=== PATIENT | female | born 1950 | race Caucasian/White ===

== ENCOUNTER → 2016-12-08 | Outpatient (CLI) | payer OTHER ==
[2016-12-08 07:55] LABS: Urine RBC None Seen /hpf (0 - 4)
[2016-12-08 08:10] LABS: Basophils # (auto) 0 uL; Eosinophils # (auto) 0.1 uL; Eosinophils % (auto) 4.7 % (0.0-7.0); Hematocrit 39.2 % (36.0-46.0); Hemoglobin 13.1 g/dL (12.2-16.2); Lymphocytes % (auto) 32.3 % (10.0-50.0); Mean Corpuscular Hemoglobin 32.2 pg (28.0-32.0); Mean Corpuscular Hgb Conc. 33.4 g/dL (32.0-36.0); Mean Corpuscular Volume 96.4 fL (80.0-100.0); Mean Platelet Volume 7.1 fL (6.9-10.8); Monocytes # (auto) 0.3 uL; Monocytes % (auto) 9.3 % (0.0-12.0); Neutrophils # (auto) 1.7 uL; Neutrophils % (auto) 52.7 % (37.0-80.0); Platelet Count (auto) 196 10^3/uL (140-450); White Blood Cell 3.2 10^3/uL (4.4-10.8)
[2016-12-08 08:23] LABS: INR 1.05 (0.9-1.15); Partial Thromboplastin Time 28.1 sec (22.64-33.71); Prothrombin Time 11.4 sec (9.37-12.3)
[2016-12-08 08:42] LABS: Urine Bilirubin Negative (Negative); Urine Blood Negative /uL (Negative); Urine Color Yellow (Yellow); Urine Glucose Normal (Normal); Urine Ketone Negative (Negative); Urine Nitrite Negative (Negative); Urine Squamous Epithelial Cell FEW /hpf (<5); Urine Urobilinogen Normal (Negative)
[2016-12-08 09:13] LABS: Albumin 3.6 g/dL (3.4-5.0); BUN/Creatinine Ratio 20.5; Bilirubin, Total 0.5 mg/dL (0.2-1.0); Potassium 3.8 mmol/L (3.5-5.1); Total Protein 7.2 g/dL (6.4-8.2)
[2016-12-09 08:06] LABS: Thyroid Peroxidase (TPO) Ab 12 IU/mL (0-34)
[2016-12-09 16:08] LABS: Sjogren's Anti-SS-A Antibody <0.2 AI (0.0-0.9)
== END | disposition home or self-care (01) ==
LOC: LAB 07:33
PROVIDERS: ATTEND Internal Medicine
DX: E03.9 Hypothyroidism, unspecified (principal); M25.50 Pain in unspecified joint
CPT/HCPCS: 36415; 80053; 80061; 81001; 84439; 84443; 85025; 85610; 85652; 85730; 86225; 86235

== ENCOUNTER → 2017-02-24 | Outpatient (CLI) | payer OTHER | END | disposition home or self-care (01) | LOC: LAB 16:39 | PROVIDERS: ATTEND Specialist | DX: N39.0 Urinary tract infection, site not specified (principal) | CPT/HCPCS: 87086 ==

== ENCOUNTER 2017-03-13 08:39 | Day surgery (SDC) | payer OTHER ==
[2017-03-10 17:03] LABS: INR 1.03 (0.9-1.15); Prothrombin Time 11.2 sec (9.37-12.3)
[2017-03-10 17:19] LABS: Basophils # (auto) 0 uL; Basophils % (auto) 0.7 % (0.0-2.0); Eosinophils # (auto) 0.1 uL; Eosinophils % (auto) 2.9 % (0.0-7.0); Hematocrit 39.1 % (36.0-46.0); Hemoglobin 12.9 g/dL (12.2-16.2); Lymphocytes % (auto) 23.4 % (10.0-50.0); Mean Corpuscular Hemoglobin 31.6 pg (28.0-32.0); Mean Corpuscular Volume 95.8 fL (80.0-100.0); Monocytes # (auto) 0.4 uL; Neutrophils # (auto) 2.9 uL; Nucleated Red Blood Cells % 0.1 %; Platelet Count (auto) 242 10^3/uL (140-450); Red Blood Cells 4.08 10^6/uL (4.0-5.20); Red Cell Distribution Width 14.1 % (11.8-14.3); White Blood Cell 4.5 10^3/uL (4.4-10.8)
[~2017-03-13] VITALS: Ht 170.2 cm; Wt 74.8 kg
[~2017-03-13 08:39] MED LIST: LEVO125T7 PO
[2017-03-13] MEDS ORDERED: SODIUM CHLORIDE LOCK 10 ML ONE (09:26)
[2017-03-13] MEDS ORDERED: diphenhdrAMINE HCL 50 MG/1 ML VL ONE (09:28)
[2017-03-13] MEDS: fentaNYL CITRATE 100 MCG/2 ML VL ONE ×2 (10:17→10:25)
[2017-03-13] MEDS: MIDAZOLAM HCL 5 MG/ML-1ML VIAL ONE ×2 (10:17→10:25)
[2017-03-13 11:13] VITALS: BP 117/76
== END 2017-03-13 11:22 | disposition home or self-care (01) ==
LOC: GI 08:39
PROVIDERS: ATTEND Internal Medicine Gastroenterology
DX: Z12.11 Encounter for screening for malignant neoplasm of colon (principal); K57.30 Diverticulosis of large intestine without perforation or abscess without bleeding; E66.9 Obesity, unspecified; Z68.25 Body mass index [BMI] 25.0-25.9, adult
CPT/HCPCS: 36415; 45378; 85025; 85610; J1200; J2250; J3010; J7030; 99152

== ENCOUNTER 2017-03-25 10:44 | Emergency (ER) | payer OTHER ==
[~2017-03-25] VITALS: Ht 170.2 cm; Wt 75.7 kg
[2017-03-25 11:56] LABS: Basophils # (auto) 0 uL; Basophils % (auto) 0.5 % (0.0-2.0); Eosinophils # (auto) 0.1 uL; Eosinophils % (auto) 2.4 % (0.0-7.0); Hematocrit 39.3 % (36.0-46.0); Hemoglobin 13.1 g/dL (12.2-16.2); Lymphocytes % (auto) 22.4 % (10.0-50.0); Mean Corpuscular Hemoglobin 31.6 pg (28.0-32.0); Mean Corpuscular Hgb Conc. 33.3 g/dL (32.0-36.0); Monocytes # (auto) 0.3 uL; Monocytes % (auto) 7.3 % (0.0-12.0); Neutrophils % (auto) 67.4 % (37.0-80.0); Nucleated Red Blood Cells % 0.1 %; Platelet Count (auto) 221 10^3/uL (140-450); Red Blood Cells 4.13 10^6/uL (4.0-5.20); Red Cell Distribution Width 13.9 % (11.8-14.3); White Blood Cell 4.4 10^3/uL (4.4-10.8)
[2017-03-25 12:16] LABS: Urine Bacteria FEW /hpf (None Seen); Urine Blood Negative /uL (Negative); Urine Specific Gravity 1.019 (1.001-1.035); Urine WBC 87 /hpf (0 - 5); Urine WBC Clumps PRESENT /hpf (None Seen)
[2017-03-25 12:29] LABS: Alanine Aminotransferase 31 U/L (13-56); Albumin 3.6 g/dL (3.4-5.0); Alkaline Phosphatase 66 U/L (45-117); Anion Gap 5 (5-15); Aspartate Aminotransferase 26 U/L (15-37); BUN/Creatinine Ratio 18.3; Bilirubin, Total 0.4 mg/dL (0.2-1.0); Blood Urea Nitrogen 15 mg/dL (7-18); Calcium 8.9 mg/dL (8.5-10.1); Carbon Dioxide 31 mmol/L (21-32); Chloride 104 mmol/L (98-107); GFR African American 90 mL/min; GFR Non-African American 74 mL/min; Glucose 96 mg/dL (74-106); Magnesium 2.4 mg/dL (1.6-2.6); Potassium 3.9 mmol/L (3.5-5.1); Sodium 140 mmol/L (136-145); Total Protein 7.3 g/dL (6.4-8.2)
[2017-03-25 15:22] VITALS: BP 114/63
[2017-03-25] MEDS ORDERED: SODIUM CHLORIDE 0.9% 500 ML IV ONE (17:17)
[2017-03-25] MEDS ORDERED: cefTRIAXone 1GM/10ml IVPUSH 10 ML IV ONE (17:30)
== END 2017-03-25 19:04 | disposition home or self-care (01) ==
LOC: ER 10:44
DX: N39.0 Urinary tract infection, site not specified (principal); R53.1 Weakness
CPT/HCPCS: 36415; 71045; 80053; 81001; 83735; 84443; 84484; 85025; 93005; 96361; 96374; 99285; J7040

== ENCOUNTER → 2017-05-07 | Outpatient (CLI) | payer OTHER | END | disposition home or self-care (01) | LOC: XYW 08:05 | PROVIDERS: ATTEND Internal Medicine | DX: Z01.818 Encounter for other preprocedural examination (principal) | CPT/HCPCS: 93306 ==

== ENCOUNTER → 2020-01-05 | Outpatient (CLI) | payer OTHER ==
[2020-01-05 08:35] LABS: Basophils # (auto) 0 10 ^3/uL (0-0.2); Basophils % (auto) 0.9 % (0.0-2.0); Eosinophils # (auto) 0.2 10 ^3/uL (0-0.8); Eosinophils % (auto) 4.9 % (0.0-7.0); Hematocrit 39.7 % (36.0-46.0); Hemoglobin 12.9 g/dL (12.2-16.2); Lymphocytes % (auto) 28.1 % (10.0-50.0); Mean Corpuscular Hemoglobin 30.2 pg (28.0-32.0); Mean Corpuscular Hgb Conc. 32.6 g/dL (32.0-36.0); Mean Corpuscular Volume 92.8 fL (80.0-100.0); Monocytes # (auto) 0.4 10 ^3/uL (0-1.3); Monocytes % (auto) 10.5 % (0.0-12.0); Neutrophils # (auto) 2.1 10 ^3/uL (1.6-8.6); Neutrophils % (auto) 55.6 % (37.0-80.0); Nucleated Red Blood Cells % 0.1 %; Platelet Count (auto) 220 10^3/uL (140-450); Red Blood Cells 4.27 10^6/uL (4.0-5.20); Red Cell Distribution Width 16.3 % (11.8-14.3); White Blood Cell 3.7 10^3/uL (4.4-10.8)
[2020-01-05 08:37] LABS: Urine Bacteria FEW /hpf (None Seen); Urine Blood Negative /uL (Negative); Urine Mucus FEW (None Seen); Urine Specific Gravity 1.023 (1.001-1.035); Urine WBC 2 /hpf (0 - 5)
[2020-01-05 09:03] LABS: Albumin 3.3 g/dL (3.4-5.0); Calcium 9.1 mg/dL (8.5-10.1); Potassium 4.1 mmol/L (3.5-5.1)
[2020-01-05 09:10] LABS: Bilirubin, Total 0.3 mg/dL (0.2-1.0); Total Protein 7.1 g/dL (6.4-8.2)
== END | disposition home or self-care (01) ==
LOC: LAB 08:15
PROVIDERS: ATTEND Internal Medicine
DX: E03.9 Hypothyroidism, unspecified (principal)
CPT/HCPCS: 36415; 80053; 80061; 81001; 84439; 84443; 85025; 85652

== ENCOUNTER → 2022-01-24 | Outpatient (CLI) | payer OTHER ==
[2022-01-24 12:01] LABS: Basophils # (auto) 0 10 ^3/uL (0-0.2); Eosinophils # (auto) 0.1 10 ^3/uL (0-0.8); Mean Corpuscular Volume 65.8 fL (80.0-100.0); Neutrophils # (auto) 1.9 10 ^3/uL (1.6-8.6)
[2022-01-24 12:03] LABS: Basophils % (auto) 0.8 % (0.0-2.0); Eosinophils % (auto) 4.2 % (0.0-7.0); Hematocrit 27.7 % (36.0-46.0); Lymphocytes # (auto) 0.8 10 ^3/uL (0.4-5.4); Lymphocytes % (auto) 24.8 % (10.0-50.0); Mean Corpuscular Hgb Conc. 28.8 g/dL (32.0-36.0); Monocytes # (auto) 0.5 10 ^3/uL (0-1.3); Monocytes % (auto) 13.8 % (0.0-12.0); Neutrophils % (auto) 56.4 % (37.0-80.0); Nucleated Red Blood Cells % 0.3 %; Red Blood Cells 4.21 10^6/uL (4.0-5.20); Red Cell Distribution Width 19.2 % (11.8-14.3); White Blood Cell 3.4 10^3/uL (4.4-10.8)
[2022-01-24 12:29] LABS: Calcium 8.8 mg/dL (8.5-10.1); Potassium 4.1 mmol/L (3.5-5.1)
[2022-01-24 12:32] LABS: Urine Bacteria NONE SEEN /hpf (None Seen); Urine Blood Negative /uL (Negative); Urine Mucus FEW (None Seen); Urine WBC 1 /hpf (0 - 5)
[2022-01-24 12:35] LABS: Albumin 3.5 g/dL (3.4-5.0); BUN/Creatinine Ratio 16.7; Bilirubin, Total 0.4 mg/dL (0.2-1.0); Total Protein 7.4 g/dL (6.4-8.2)
== END | disposition home or self-care (01) ==
LOC: LAB 11:40
PROVIDERS: ATTEND Internal Medicine
DX: H26.9 Unspecified cataract (principal); H40.9 Unspecified glaucoma
CPT/HCPCS: 36415; 80053; 80061; 81001; 83036; 84439; 84443; 84550; 85025; 85379; 85652; 86431

== ENCOUNTER → 2022-01-27 | Outpatient (CLI) | payer OTHER ==
[2022-01-27 11:28] LABS: % Iron Saturation 2.5 % (15-50)
[2022-01-27 12:38] LABS: Folate (Folic Acid) > 24.00 ng/mL (5.38-24)
== END | disposition home or self-care (01) ==
LOC: LAB 10:01
PROVIDERS: ATTEND Internal Medicine
DX: D64.9 Anemia, unspecified (principal); D72.819 Decreased white blood cell count, unspecified
CPT/HCPCS: 36415; 82607; 82746; 83540; 83550; 83615; 83690

== ENCOUNTER → 2022-04-04 | Outpatient (CLI) | payer OTHER ==
[2022-04-04 13:12] LABS: Basophils # (auto) 0 10 ^3/uL (0-0.2); Basophils % (auto) 0.8 % (0.0-2.0); Eosinophils # (auto) 0.1 10 ^3/uL (0-0.8); Hematocrit 38.7 % (36.0-46.0); Hemoglobin 11.8 g/dL (12.2-16.2); Lymphocytes # (auto) 0.8 10 ^3/uL (0.4-5.4); Lymphocytes % (auto) 20.8 % (10.0-50.0); Mean Corpuscular Hemoglobin 23.5 pg (28.0-32.0); Mean Corpuscular Hgb Conc. 30.4 g/dL (32.0-36.0); Mean Corpuscular Volume 77.2 fL (80.0-100.0); Monocytes # (auto) 0.3 10 ^3/uL (0-1.3); Monocytes % (auto) 9.2 % (0.0-12.0); Neutrophils # (auto) 2.4 10 ^3/uL (1.6-8.6); Neutrophils % (auto) 66.2 % (37.0-80.0); Nucleated Red Blood Cells % 0.1 %; Red Blood Cells 5.02 10^6/uL (4.0-5.20); White Blood Cell 3.6 10^3/uL (4.4-10.8)
[2022-04-04 13:16] LABS: Red Cell Distribution Width 28.5 % (11.8-14.3)
[2022-04-04 13:25] LABS: INR 1.03 (0.9-1.15)
[2022-04-04 14:09] LABS: Albumin 3.9 g/dL (3.4-5.0); Calcium 8.8 mg/dL (8.5-10.1); Potassium 4.2 mmol/L (3.5-5.1)
[2022-04-04 14:13] LABS: BUN/Creatinine Ratio 23.3; Bilirubin, Total 0.3 mg/dL (0.2-1.0); Total Protein 7.8 g/dL (6.4-8.2)
[2022-04-04 14:23] LABS: Free T4 (Free Thyroxine) 1.3 ng/dL (0.89-1.76)
[2022-04-04 14:38] LABS: % Iron Saturation 53.8 % (15-50)
== END | disposition home or self-care (01) ==
LOC: LAB 12:50
PROVIDERS: ATTEND Internal Medicine
DX: E03.9 Hypothyroidism, unspecified (principal); D64.9 Anemia, unspecified
CPT/HCPCS: 36415; 80053; 82607; 83540; 83550; 84439; 84443; 85025; 85610

== ENCOUNTER → 2022-04-08 | Outpatient (CLI) | payer OTHER | END | disposition home or self-care (01) | LOC: XYW 09:37 | PROVIDERS: ATTEND Internal Medicine | DX: R06.02 Shortness of breath (principal) | CPT/HCPCS: 93306 ==

== ENCOUNTER → 2022-04-17 | Outpatient (CLI) | payer OTHER ==
[~2022-04-17] VITALS: Ht 170.2 cm; Wt 113.4 kg
[~2022-04-17] MED LIST changes: +ADENOSINE 95 MG in GIVE UN-DILUTED 0 ML IV ONE
== END | disposition home or self-care (01) ==
LOC: XYW 07:07
PROVIDERS: ATTEND Internal Medicine
DX: R06.02 Shortness of breath (principal)
CPT/HCPCS: 78452; 93017; A9500; J0153

== ENCOUNTER 2022-06-03 11:39 | Inpatient (IN) | payer OTHER ==
[~2022-06-03] VITALS: Ht 167.6 cm; Wt 113.5 kg
[~2022-06-03 11:39] MED LIST changes: -ADENOSINE 95 MG in GIVE UN-DILUTED 0 ML IV ONE
[2022-06-03] MEDS ORDERED: ASPirin 325 MG TAB PO ONE (12:00)
[2022-06-03 12:18] LABS: Basophils # (auto) 0 10 ^3/uL (0-0.2); Basophils % (auto) 0.2 % (0.0-2.0); Eosinophils # (auto) 0 10 ^3/uL (0-0.8); Eosinophils % (auto) 0.1 % (0.0-7.0); Hematocrit 43.2 % (36.0-46.0); Hemoglobin 13.9 g/dL (12.2-16.2); Lymphocytes # (auto) 0.7 10 ^3/uL (0.4-5.4); Mean Corpuscular Hemoglobin 27.6 pg (28.0-32.0); Mean Corpuscular Hgb Conc. 32.1 g/dL (32.0-36.0); Mean Corpuscular Volume 86.2 fL (80.0-100.0); Monocytes % (auto) 9.5 % (0.0-12.0); Neutrophils # (auto) 8.3 10 ^3/uL (1.6-8.6); Neutrophils % (auto) 83.2 % (37.0-80.0); Nucleated Red Blood Cells % 0.1 %; Red Blood Cells 5.02 10^6/uL (4.0-5.20)
[2022-06-03 12:24] LABS: Red Cell Distribution Width 21.9 % (11.8-14.3)
[2022-06-03 12:36] LABS: Calcium 8.6 mg/dL (8.5-10.1)
[2022-06-03 12:39] LABS: BUN/Creatinine Ratio 15.2 (10.0-20.0); Bilirubin, Total 0.8 mg/dL (0.2-1.0); Total Protein 7.8 g/dL (6.4-8.2)
[2022-06-03] MEDS ORDERED: ENOXAPARIN SOD 120 MG/0.8 ML SYRINGE SC ONE (13:00)
[2022-06-03] MEDS ORDERED: NITROGLYCERIN 0.4 MG SL TAB SL PRN (15:00)
[2022-06-03] MEDS ORDERED: MORPHINE SULFATE INJ 2 MG/ml SYRG IV PRN (15:00)
[2022-06-03] MEDS ORDERED: ACETAMINOPHEN 325 MG TAB PO PRN (15:00)
[2022-06-03] MEDS ORDERED: PANTOPRAZOLE 40 MG/10 ML VIAL INJ IV ONE (15:00)
[2022-06-03] MEDS ORDERED: SERT50TA19 PO (15:05)
[2022-06-03] MEDS ORDERED: PANT40T PO (15:05)
[2022-06-03] MEDS ORDERED: OXYB5TAB24 (15:05)
[2022-06-03 15:26] LABS: Cholesterol 185 mg/dL (< 200)
[2022-06-03 15:28] LABS: HDL Cholesterol 78 mg/dL (40-59); LDL Cholesterol 106 mg/dL (< 100); Triglycerides 56 mg/dL (< 150)
[2022-06-03 15:30] LABS: INR 1.09 (0.9-1.15); Partial Thromboplastin Time 35.9 sec (24.6-33.4)
[2022-06-03] MEDS ORDERED: ALBUTEROL SULF 2.5 MG/0.5ML(0.5%) NEB SOLN NEB PRN (15:30)
[2022-06-03] MEDS ORDERED: ANGIOMAX 250 MG VIAL IV ONE (15:45)
[2022-06-03] MEDS ORDERED: HEPARIN SODIUM (PORCINE) 5000 UNITS/ML 1ML VIAL ONE (15:46)
[2022-06-03] MEDS ORDERED: SODIUM CHL 0.9% 0 ML ONE (15:46)
[2022-06-03] MEDS ORDERED: fentaNYL CITRATE 100 MCG/2 ML VL ONE (15:46)
[2022-06-03] MEDS ORDERED: VERAPAMIL 2.5MG/ML INJ 2ML VIAL IV ONE (15:46)
[2022-06-03] MEDS ORDERED: MIDAZOLAM HCL 2MG/2ML 2ml VIAL (1mg/ml) ONE (15:46)
[2022-06-03] MEDS ORDERED: IODIXANOL 320MG/ML 100ML BTL IV ONE (15:47)
[2022-06-03] MEDS ORDERED: LIDOCAINE 2%HCL (LOCAL ANESTH.) INJ 20ML MDV ONE (15:47)
[2022-06-03] MEDS ORDERED: LIDOCAINE 1% HCL (LOCAL ANESTH.) INJ 20ML MDV ONE (16:14)
[2022-06-03 16:46] VITALS: BP 107/59
[2022-06-03 17:01] VITALS: BP 104/62
[2022-06-03 17:16] VITALS: BP 93/57
[2022-06-03 17:31] VITALS: BP 95/62
[2022-06-03 17:46] VITALS: BP 101/62
[2022-06-03] MEDS: SODIUM CHLORIDE 0.9% 1,000 ML IV SCH (18:14)
[2022-06-03] MEDS: ATORVASTATIN 20 MG TAB PO SCH (21:17)
[2022-06-03 21:55] VITALS: BP 103/66
[2022-06-04 05:00] VITALS: BP 91/55
[2022-06-04] MEDS: LEVOTHYROXINE SODIUM 25 MCG TAB PO SCH (06:10)
[2022-06-04] MEDS: LEVOTHYROXINE SODIUM 100 MCG TAB PO SCH (06:10)
[2022-06-04] MEDS: SODIUM CHLORIDE 0.9% 1,000 ML IV SCH (06:15)
[2022-06-04 06:28] LABS: Basophils # (auto) 0 10 ^3/uL (0-0.2); Basophils % (auto) 0.3 % (0.0-2.0); Eosinophils # (auto) 0 10 ^3/uL (0-0.8); Eosinophils % (auto) 0.3 % (0.0-7.0); Hematocrit 37.9 % (36.0-46.0); Hemoglobin 12.5 g/dL (12.2-16.2); Lymphocytes % (auto) 11.7 % (10.0-50.0); Mean Corpuscular Hemoglobin 28.4 pg (28.0-32.0); Mean Corpuscular Hgb Conc. 32.9 g/dL (32.0-36.0); Mean Corpuscular Volume 86.3 fL (80.0-100.0); Monocytes # (auto) 1.1 10 ^3/uL (0-1.3); Monocytes % (auto) 12.7 % (0.0-12.0); Neutrophils # (auto) 6.6 10 ^3/uL (1.6-8.6); Nucleated Red Blood Cells % 0.3 %; Red Blood Cells 4.38 10^6/uL (4.0-5.20); White Blood Cell 8.8 10^3/uL (4.4-10.8)
[2022-06-04 06:48] LABS: Potassium 4.1 mmol/L (3.5-5.1)
[2022-06-04 06:56] LABS: Albumin 2.6 g/dL (3.4-5.0); BUN/Creatinine Ratio 22.2 (10.0-20.0); Bilirubin, Total 0.6 mg/dL (0.2-1.0); Calcium 8.1 mg/dL (8.5-10.1); Total Protein 6.2 g/dL (6.4-8.2)
[2022-06-04 09:00] VITALS: BP 98/62
[2022-06-04] MEDS ORDERED: ASPirin 81 mg TAB PO ONE (10:00)
[2022-06-04] MEDS ORDERED: METOPROLOL SUCCINATE XL 50 MG TAB PO SCH (10:00)
[2022-06-04] MEDS: SERTRALINE HCL 50 MG TAB PO SCH (10:25)
[2022-06-04] MEDS: predniSONE 20 MG TAB PO SCH (10:25)
[2022-06-04] MEDS: ASPirin 81 mg TAB PO SCH (10:26)
[2022-06-04] MEDS: PANTOPRAZOLE 40 MG/10 ML VIAL INJ IV SCH (10:26)
[2022-06-04 13:00] VITALS: BP 95/61
[2022-06-04 16:58] VITALS: BP 94/51
[2022-06-04] MEDS: ATORVASTATIN 20 MG TAB PO SCH (21:27)
[2022-06-04 22:00] VITALS: BP 112/74
[2022-06-05 05:00] VITALS: BP 105/62
[2022-06-05] MEDS: LEVOTHYROXINE SODIUM 100 MCG TAB PO SCH (06:36)
[2022-06-05] MEDS: LEVOTHYROXINE SODIUM 25 MCG TAB PO SCH (06:36)
[2022-06-05 06:57] LABS: Basophils # (auto) 0 10 ^3/uL (0-0.2); Basophils % (auto) 0.2 % (0.0-2.0); Eosinophils # (auto) 0 10 ^3/uL (0-0.8); Eosinophils % (auto) 0.5 % (0.0-7.0); Hematocrit 35.8 % (36.0-46.0); Hemoglobin 11.5 g/dL (12.2-16.2); Lymphocytes # (auto) 1.2 10 ^3/uL (0.4-5.4); Mean Corpuscular Hemoglobin 28.1 pg (28.0-32.0); Mean Corpuscular Hgb Conc. 32.2 g/dL (32.0-36.0); Mean Corpuscular Volume 87.1 fL (80.0-100.0); Monocytes # (auto) 0.9 10 ^3/uL (0-1.3); Monocytes % (auto) 11.3 % (0.0-12.0); Neutrophils # (auto) 5.8 10 ^3/uL (1.6-8.6); Red Blood Cells 4.11 10^6/uL (4.0-5.20); White Blood Cell 7.9 10^3/uL (4.4-10.8)
[2022-06-05 07:04] LABS: Red Cell Distribution Width 21.6 % (11.8-14.3)
[2022-06-05 07:14] LABS: BUN/Creatinine Ratio 19.5 (10.0-20.0); Calcium 8.7 mg/dL (8.5-10.1); Potassium 3.6 mmol/L (3.5-5.1)
[2022-06-05 09:00] VITALS: BP_SYST 106; BP_SYST 128; BP_DIAS 82; BP_DIAS 89
[2022-06-05] MEDS: ASPirin 81 mg TAB PO SCH (09:18)
[2022-06-05] MEDS: predniSONE 20 MG TAB PO SCH (09:19)
[2022-06-05] MEDS: SERTRALINE HCL 50 MG TAB PO SCH (09:19)
[2022-06-05] MEDS: PANTOPRAZOLE 40 MG/10 ML VIAL INJ IV SCH (09:19)
[2022-06-05] MEDS ORDERED: COLCHICINE 0.6 MG CAP PO SCH (10:00)
[2022-06-05 12:55] VITALS: BP 128/81
[2022-06-05 15:00] VITALS: BP 120/87
== END 2022-06-05 16:15 | disposition home or self-care (01) | DRG 280 ==
LOC: EDBD 11:39 → ER 11:39 → TELE 15:02 → TELE-WESTW 17:59
PROVIDERS: ADMIT Nurse Practitioner Family; ATTEND Internal Medicine
PROC: 4A023N7 Measurement of Cardiac Sampling and Pressure, Left Heart, Percutaneous Approach (ICD-10-PCS; principal; 2022-06-03)
PROC: B211YZZ Fluoroscopy of Multiple Coronary Arteries using Other Contrast (ICD-10-PCS; 2022-06-03)
PROC: B215YZZ Fluoroscopy of Left Heart using Other Contrast (ICD-10-PCS; 2022-06-03)
DX: I25.10 Atherosclerotic heart disease of native coronary artery without angina pectoris (principal); I50.43 Acute on chronic combined systolic (congestive) and diastolic (congestive) heart failure; I21.A1 Myocardial infarction type 2; I31.9 Disease of pericardium, unspecified; Z68.41 Body mass index [BMI] 40.0-44.9, adult; I82.412 Acute embolism and thrombosis of left femoral vein; E03.9 Hypothyroidism, unspecified; E66.01 Morbid (severe) obesity due to excess calories; F41.9 Anxiety disorder, unspecified; K21.9 Gastro-esophageal reflux disease without esophagitis; Z20.822 Contact with and (suspected) exposure to COVID-19; Z80.1 Family history of malignant neoplasm of trachea, bronchus and lung; Z82.49 Family history of ischemic heart disease and other diseases of the circulatory system
CPT/HCPCS: 36415; 71045; 78582; 80048; 80053; 80061; 83036; 83880; 84443; 84484; 85025; 85379; 85610; 85730; 87426; 93005; 93970; 96372; 99152; 99291; C9113; G0378; J2001; J2250; Q9967

== ENCOUNTER → 2022-09-04 | Outpatient (CLI) | payer OTHER ==
[~2022-09-04] MED LIST changes: +OXYB5TAB24; +PANT40T PO; +SERT-206 PO
== END | disposition home or self-care (01) ==
LOC: LAB 12:40
PROVIDERS: ATTEND Internal Medicine
DX: I82.409 Acute embolism and thrombosis of unspecified deep veins of unspecified lower extremity (principal); M19.90 Unspecified osteoarthritis, unspecified site
CPT/HCPCS: 36415; 81241; 85301; 85302; 85305; 85306; 85730

== ENCOUNTER → 2023-02-23 | Outpatient (CLI) | payer OTHER ==
[2023-02-23 11:21] LABS: Basophils # (auto) 0 10 ^3/uL (0-0.2); Basophils % (auto) 0.9 % (0.0-2.0); Eosinophils # (auto) 0.2 10 ^3/uL (0-0.8); Eosinophils % (auto) 5.1 % (0.0-7.0); Hemoglobin 12.5 g/dL (12.2-16.2); Lymphocytes # (auto) 0.8 10 ^3/uL (0.4-5.4); Lymphocytes % (auto) 24.2 % (10.0-50.0); Mean Corpuscular Hemoglobin 32.5 pg (28.0-32.0); Mean Corpuscular Hgb Conc. 32.8 g/dL (32.0-36.0); Mean Corpuscular Volume 99.2 fL (80.0-100.0); Monocytes # (auto) 0.4 10 ^3/uL (0-1.3); Monocytes % (auto) 11.4 % (0.0-12.0); Neutrophils # (auto) 1.8 10 ^3/uL (1.6-8.6); Neutrophils % (auto) 58.4 % (37.0-80.0); Nucleated Red Blood Cells % 0.1 %; Red Blood Cells 3.83 10^6/uL (4.0-5.20); Red Cell Distribution Width 13.2 % (11.8-14.3); White Blood Cell 3.2 10^3/uL (4.4-10.8)
[2023-02-23 11:42] LABS: Urine Bacteria FEW /hpf (None Seen); Urine Blood Negative /uL (Negative); Urine Clarity Clear (Clear); Urine Color Yellow (Yellow); Urine Protein, UAD TRACE (Negative); Urine Specific Gravity 1.026 (1.001-1.035); Urine Urobilinogen Normal (Negative); Urine WBC <1 /hpf (0 - 5)
[2023-02-23 11:58] LABS: Erythrocyte Sedimentation Rate 15 mm/hr (0-20)
[2023-02-23 12:20] LABS: Alanine Aminotransferase 22 U/L (7-40); Albumin 4.2 g/dL (3.2-4.8); Alkaline Phosphatase 78 U/L (46-116); Anion Gap 5 (5-15); Aspartate Aminotransferase 29 U/L (13-40); BUN/Creatinine Ratio 14.3 (10.0-20.0); Bilirubin, Total 0.5 mg/dL (0.2-1.0); Blood Urea Nitrogen 10 mg/dL (9-23); CRP High Sensitivity 0.23 mg/dL (<1.0); Calcium 9.3 mg/dL (8.5-10.1); Carbon Dioxide 30 mmol/L (20-30); Chloride 108 mmol/L (98-107); Glucose 93 mg/dL (74-106); Sodium 143 mmol/L (136-145)
== END | disposition home or self-care (01) ==
LOC: LAB 10:56
PROVIDERS: ATTEND Internal Medicine Rheumatology
DX: M32.10 Systemic lupus erythematosus, organ or system involvement unspecified (principal); Z79.899 Other long term (current) drug therapy
CPT/HCPCS: 36415; 80053; 81001; 85025; 85652; 86141

== ENCOUNTER → 2023-05-29 | Outpatient (CLI) | payer OTHER ==
[2023-05-29 09:40] LABS: Basophils # (auto) 0 10 ^3/uL (0-0.2); Basophils % (auto) 0.7 % (0.0-2.0); Eosinophils # (auto) 0.2 10 ^3/uL (0-0.8); Hematocrit 42.5 % (36.0-46.0); Hemoglobin 13.8 g/dL (12.2-16.2); Lymphocytes # (auto) 0.9 10 ^3/uL (0.4-5.4); Lymphocytes % (auto) 27.6 % (10.0-50.0); Mean Corpuscular Hemoglobin 30.2 pg (28.0-32.0); Mean Corpuscular Hgb Conc. 32.4 g/dL (32.0-36.0); Mean Corpuscular Volume 93.3 fL (80.0-100.0); Monocytes # (auto) 0.3 10 ^3/uL (0-1.3); Neutrophils # (auto) 1.9 10 ^3/uL (1.6-8.6); Neutrophils % (auto) 55.7 % (37.0-80.0); Nucleated Red Blood Cells % 0.1 %; Red Blood Cells 4.56 10^6/uL (4.0-5.20); Red Cell Distribution Width 15.4 % (11.8-14.3); White Blood Cell 3.4 10^3/uL (4.4-10.8)
[2023-05-29 09:56] LABS: Urine Bacteria NONE SEEN /hpf (None Seen); Urine Blood Negative /uL (Negative); Urine Clarity Clear (Clear); Urine Color Yellow (Yellow); Urine Hyaline Cast FEW /lpf (0 - 2); Urine Protein, UAD Negative (Negative); Urine Specific Gravity 1.018 (1.001-1.035); Urine Urobilinogen Normal (Negative); Urine WBC 1 /hpf (0 - 5); Urine pH 5.5 (5.0-8.0)
[2023-05-29 10:12] LABS: Alanine Aminotransferase 15 U/L (7-40); Alkaline Phosphatase 80 U/L (46-116); Anion Gap 5 (5-15); Aspartate Aminotransferase 25 U/L (13-40); BUN/Creatinine Ratio 18.5 (10.0-20.0); Blood Urea Nitrogen 17 mg/dL (9-23); Calcium 9.4 mg/dL (8.5-10.1); Carbon Dioxide 31 mmol/L (20-30); Chloride 104 mmol/L (98-107); Cholesterol 236 mg/dL (< 200); Glucose 98 mg/dL (74-106); HDL Cholesterol 86 mg/dL (40-59); LDL Cholesterol 151 mg/dL (< 100); Potassium 4.5 mmol/L (3.5-5.1); Sodium 140 mmol/L (136-145); Triglycerides 60 mg/dL (< 150)
[2023-05-29 10:13] LABS: Bilirubin, Total 0.4 mg/dL (0.2-1.0); Total Protein 7.2 g/dL (5.7-8.2)
[2023-05-29 10:31] LABS: Erythrocyte Sedimentation Rate 11 mm/hr (0-20)
[2023-05-29 10:34] LABS: INR 1.02 (0.9-1.15); Partial Thromboplastin Time 30.1 SEC (24.5-34.5); Prothrombin Time 10.7 sec (9.3-11.8)
== END | disposition home or self-care (01) ==
LOC: LAB 09:25
PROVIDERS: ATTEND Internal Medicine
DX: M19.90 Unspecified osteoarthritis, unspecified site (principal)
CPT/HCPCS: 36415; 80053; 80061; 81001; 83880; 84439; 84443; 85025; 85379; 85610; 85652; 85730

== ENCOUNTER 2024-06-15 12:41 | Inpatient (IN) | payer OTHER ==
[~2024-06-15] VITALS: Ht 170.2 cm; Wt 106.5 kg
--- NOTE | 2024-06-15 13:01 | ED.PDOC ---
History of Present Illness HPI Comments 73F BIBA w/ prior Hx of an [place]-Angioplasty, Hypothyroidism and anxiety which all may be associated to the c/c of CP. EMs informed us that they picked up the pt from home, as well as the pt has pain upon inspiration which started today at 0600. Pt notes it it pressure like CP on the left side. EMS state that the pt had N/V at 1000 today. Denies chills, fever, /D, or no other associated symptoms, modifiers, recent injuries or sick contacts at this time. Chief Complaint: Chest Pain Time Seen by MD: 12:45 Reviewed Notes: Nurses Notes, Track Service Worker Notes, Medications, Allergies Allergies: Coded Allergies: NO KNOWN ALLERGIES (Unverified , 07/07/17) Home Meds Active Scripts Nitrofurantoin Monohydrate Mac (Macrobid) 100 Mg Cap, 100 MG PO BID for 5 Days, #10 CAP Prov:JOSELO NATARAJAN MD 06/15/24 Reported Medications Oxybutynin Chloride (Ditropan Xl) 5 Mg Tab, 5 06/03/22 Sertraline Hcl (Sertraline Hcl) 50 Mg Tab, 1 TAB PO DAILY 06/03/22 Pantoprazole Sodium Sesquihydr (Pantoprazole Sodium) 40 Mg Tab, 1 TAB PO DAILY 06/03/22 Levothyroxine Sodium (Levothyroxine Sodium) 125 Mcg Tab, 125 MCG PO QAM for 30 Days, MCG 03/10/17 Information Source: Patient, Emergency Med Personnel Mode of Arrival: EMS Severity: Moderate Timing: Hours Duration: Since onset, Hours Prehospital treatment: None Past Medical History PAST MEDICAL HISTORY: Anxiety, [place] (Angioplasty), Thyroid (hypo-) Surgical History: Denies all surgeries PRODUCTION OPERATIONS MANAGER History: No Pertinent PRODUCTION OPERATIONS MANAGER History Family History Family History: Reviewed,noncontributory to illness, Unknown Social History Smoker: Non-Smoker Alcohol: Denies ETOH Use Drugs: Denies Drug Use Lives In: Home Constitutional: denies: chills, diaphoresis, fatigue, fever, malaise, sweats, weakness, others EENTM: denies: blurred vision, double vision, ear bleeding, ear discharge, ear drainage, ear pain, ear ringing, eye pain, eye redness, hearing loss, mouth pain, mouth swelling, nasal discharge, nose bleeding, nose congestion, nose pain, photophobia, tearing, throat pain, throat swelling, voice changes, others Respiratory: reports: shortness of breath; denies: cough, hemoptysis, orthopnea, SOB at rest, SOB with excertion, stridor, wheezing, others Cardiovascular: reports: chest pain; denies: dizzy spells, diaphoresis, Dyspnea on exertion, edema, irregular heart beat, left arm pain, lightheadedness, palpitations, PND, syncope, others Gastrointestinal: reports: nausea, vomiting; denies: abdomen distended, abdominal pain, blood streaked bowels, constipated, diarrhea, dysphagia, difficulty swallowing, hematemesis, melena, poor appetite, poor fluid intake, rectal bleeding, rectal pain, others Genitourinary: denies: abnormal vagina bleeding, burning, dyspareunia, dysuria, flank pain, frequency, hematuria, incontinence, pain, , vagina discharge, urgency, others Neurological: denies: dizziness, fainting, headache, left sided numbness, left sided weakness, numbness, paresthesia, pre-existing deficit, right sided numbness, right sided weakness, seizure, speech problems, tingling, tremors, weakness, others Musculoskeletal: denies: back pain, gout, joint pain, joint swelling, muscle pain, muscle stiffness, neck pain, others Integumetry: denies: bruises, change in color, change in hair/nails, dryness, laceration, lesions, lumps, rash, wounds, others Allergic/Immunocompromised: denies: Difficulty Healing, Frequent Infections, Hives, Itching, others Hematologic/Lymphatic: denies: anemia, blood clots, easy bleeding, easy bruising, swollen glands, others Endocrine: denies: excessive hunger, excessive sweating, excessive thirst, excessive urination, flushing, intolerance to cold, intolerance to heat, unexplained weight gain, unexplained weight loss, others Psychiatric: denies: anxiety, bipolar disorder, depression, hopeless, panic disorder, schizophrenia, sleepless, suicidal, others All Other Systems: Reviewed and Negative Physical Exam General Appearance: Moderate Distress, Normal HEENT: Normal ENT Inspection, Pharynx Normal, TMs Normal Neck: Full Range of Motion, Non-Tender, Normal, Normal Inspection Respiratory: Chest Non-Tender, Lungs Clear, No Accessory Muscle Use, No Respiratory Distress, Normal Breath Sounds Cardiovascular: No Edema, No JVD, No Murmur, No Gallop, Normal Peripheral Pu lses, Regular Rate/Rhythm Breast Exam: Deferred Gastrointestinal: No Organomegaly, Non Tender, No Pulsatile Mass, Normal Bowel Sounds, Soft Genitalia: Deferred Pelvic: Deferred Rectal: Deferred Extremities: No calf tenderness, Normal capillary refill, Normal inspection, Normal range of motion, Non-tender, No pedal edema Musculoskeletal : Apperance: Normal Neurologic: Alert, enamel finisher II-XII nml as Tested, No Motor Deficits, Normal Affect, Normal Mood, No Sensory Deficits Cerebellar Function: NOT DONE Reflexes: NOT DONE Skin: Dry, Normal Color, Warm Peripheral Pulses: 3+ Radial (R), 3+ Radial (L) Lymphatic: No Adenopathy Was a procedure done? Was a procedure done?: No EKG EKG : Pulse Rate (adult): 78 [place]: Normal Cardiac Rhythm: NSR Block: None Hypertrophy: None ST: Normal Differential Dx Considerations may include: Anxiety Anemia X-Ray, Labs, Meds, VS Vital Signs Date Time Temp Pulse Resp B/P (MAP) Pulse Ox O2 Delivery O2 Flow Rate FiO2 06/15/24 15:19 79 16 146/81 (102) 96 06/15/24 15:19 79 16 96 Room Air* 0 21 06/15/24 15:13 79 18 146/81 06/15/24 14:05 104 06/15/24 14:05 98.0 104 20 140/81 (100) 96 98.0 06/15/24 13:01 78 06/15/24 12:54 97.7 83 17 136/64 (88) 95 97.7 06/15/24 12:43 78 Lab Test 06/15/24 15:15 06/15/24 15:11 06/15/24 13:05 Range/Units Urine Color Yellow Yellow Urine Clarity Turbid H Clear Urine pH 6.5 5.0-9.0 Urine Specific [place] 1.034 1.001-1.035 Urine Protein 1+ H Negative Urine Ketones 2+ H Negative Urine Blood Negative Negative /uL Urine Nitrite Negative Negative Urine Bilirubin Negative Negative Urine Urobilinogen 2 H Negative mg/dL Urine Leukocyte Esterase 1+ Negative /uL Urine RBC 4 0 - 4 /hpf Urine Microscopic WBC 6 H 0-5 /HPF Urine Squamous Epithelial Cells Few <5 /hpf Urine Bacteria Few H None Seen /hpf Urine Hyaline Casts Few 0 - 2 /lpf Urine Mucus Few None Seen Urine Glucose Normal Normal mg/dL Troponin I High Sensitivity 12 11 </=34 ng/L White Blood Count 9.7 4.4-10.8 10^3/uL Red Blood Count 4.81 4.0-5.20 10^6/uL Hemoglobin 15.6 12.2-16.2 g/dL Hematocrit 45.8 36.0-46.0 % Mean Corpuscular Volume 95.2 80.0-100.0 fL Mean Corpuscular Hemoglobin 32.5 H 28.0-32.0 pg Mean Corpuscular Hemoglobin Concent 34.1 32.0-36.0 g/dL Red Cell Distribution Width 13.5 11.8-14.3 % Platelet Count 239 140-450 10^3/uL Mean Platelet Volume 8.1 6.9-10.8 fL Neutrophils (%) (Auto) 85.6 H 37.0-80.0 % Lymphocytes (%) (Auto) 8.2 L 10.0-50.0 % Monocytes (%) (Auto) 5.5 0.0-12.0 % Eosinophils (%) (Auto) 0.4 0.0-7.0 % Basophils (%) (Auto) 0.3 0.0-2.0 % Neutrophils # (Auto) 8.3 1.6-8.6 10 ^3/uL Lymphocytes # (Auto) 0.8 0.4-5.4 10 ^3/uL Monocytes # (Auto) 0.5 0-1.3 10 ^3/uL Eosinophils # (Auto) 0 0-0.8 10 ^3/uL Basophils # (Auto) 0 0-0.2 10 ^3/uL Nucleated Red Blood Cells 0.1 % Sodium Level 139 136-145 mmol/L Potassium Level 3.9 3.5-5.1 mmol/L Chloride Level 99 98-107 mmol/L Carbon Dioxide Level 29 20-31 mmol/L Anion Gap 11 5-15 Blood Urea Nitrogen 21 9-23 mg/dL Creatinine 0.92 0.550-1.02 mg/dL Glomerular Filtration Rate Calc 66 >90 mL/min BUN/Creatinine Ratio 22.8 H 10.0-20.0 Serum Glucose 104 74-106 mg/dL Calcium Level 10.4 8.7-10.4 mg/dL Current Medications Medications (Trade) Dose Ordered Sig/Rosibel Route Start Time Stop Time Status Last Admin Lorazepam (Ativan Tablet) 1 mg ONCE ONCE PO 06/15/24 13:30 06/15/24 13:31 DC 06/15/24 14:01 Aspirin 325 mg ONCE ONCE PO 06/15/24 14:45 06/15/24 14:46 DC 06/15/24 14:51 Pantoprazole Sodium (Protonix) 40 mg ONCE ONCE IV 06/15/24 15:00 06/15/24 15:01 DC 06/15/24 15:12 Ondansetron HCl (Zofran) 4 mg ONCE ONCE IV 06/15/24 15:00 06/15/24 15:01 DC 06/15/24 15:13 Sodium Chloride 1,000 ml @ 1,000 mls/hr Q1H ONCE IV 06/15/24 15:00 06/15/24 15:59 DC 06/15/24 15:12 Morphine Sulfate 4 mg ONCE ONCE IV 06/15/24 15:15 06/15/24 15:16 DC 06/15/24 15:13 Patient alert. Came in because of chest discomfort. Vitals stable. Answering questions. EKG reviewed does not show any acute changes. No leg swelling. No shortness a breath. No discoloration. Reviewed her history. She did vomit bright red liquid. Was given Protonix. CT scan of the abdomen reviewed does show colitis. Was given Rocephin. Was given Flagyl. Explained to the patient. Continue monitoring. Time of 1ST Reevaluation: 13:15 Reevaluation 1ST: Improved Patient Education/Counseling: Diagnosis, Treatment, Prognosis Family Education/Counseling: No Family Present Departure 1 Departure Time of Disposition: 13:25 Impression: Primary Impression: GI bleed Qualified Codes: K27.4 - Chronic or unspecified peptic ulcer, site unspecified, with hemorrhage Additional Impressions: Musculoskeletal chest pain UTI (urinary tract infection) Qualified Codes: N30.00 - Acute cystitis without hematuria Colitis Disposition: ADMITTED INPATIENT Admit to: Med Surg Condition: Guarded e-Prescriptions Nitrofurantoin Monohydrate Mac (Macrobid) 100 Mg Cap 100 MG PO BID for 5 Days, #10 CAP Prov: JOSELO NATARAJAN MD 06/15/24 Critical Care Note Critical Care Time?: No Stability Stability form required: No Heart Score Heart Score: Heart Score Response (Comments) Value History Slightly Suspicious 0 EKG Normal 0 Age >65 2 Risk Factors 1 or 2 risk factors 1 Troponin Normal limit 0 Total 3 I personally scribed for JOSELO NATARAJAN MD ([email or web address]) on 06/15/24 at 13:01. Electronically submitted by Senthil Dotson ([email or web address]). JOSELO NATARAJAN MD Jun 15, 2024 13:01
[2024-06-15 13:30] LABS: Basophils # (auto) 0 10 ^3/uL (0-0.2); Basophils % (auto) 0.3 % (0.0-2.0); Eosinophils # (auto) 0 10 ^3/uL (0-0.8); Eosinophils % (auto) 0.4 % (0.0-7.0); Hematocrit 45.8 % (36.0-46.0); Hemoglobin 15.6 g/dL (12.2-16.2); Lymphocytes # (auto) 0.8 10 ^3/uL (0.4-5.4); Lymphocytes % (auto) 8.2 % (10.0-50.0); Mean Corpuscular Hemoglobin 32.5 pg (28.0-32.0); Mean Corpuscular Hgb Conc. 34.1 g/dL (32.0-36.0); Mean Corpuscular Volume 95.2 fL (80.0-100.0); Monocytes # (auto) 0.5 10 ^3/uL (0-1.3); Monocytes % (auto) 5.5 % (0.0-12.0); Neutrophils # (auto) 8.3 10 ^3/uL (1.6-8.6); Neutrophils % (auto) 85.6 % (37.0-80.0); Nucleated Red Blood Cells % 0.1 %; Platelet Count (auto) 239 10^3/uL (140-450); Red Blood Cells 4.81 10^6/uL (4.0-5.20); Red Cell Distribution Width 13.5 % (11.8-14.3); White Blood Cell 9.7 10^3/uL (4.4-10.8)
[2024-06-15] MEDS ORDERED: LORazepam 0.5 MG TAB PO ONE (13:30)
[2024-06-15 13:33] LABS: Chloride 99 mmol/L (98-107); Potassium 3.9 mmol/L (3.5-5.1); Sodium 139 mmol/L (136-145)
[2024-06-15 13:34] LABS: Anion Gap 11 (5-15); Carbon Dioxide 29 mmol/L (20-31)
[2024-06-15 13:36] LABS: Calcium 10.4 mg/dL (8.7-10.4)
[2024-06-15 13:39] LABS: BUN/Creatinine Ratio 22.8 (10.0-20.0); Blood Urea Nitrogen 21 mg/dL (9-23); Glucose 104 mg/dL (74-106)
[2024-06-15] MEDS: LORazepam 0.5 MG TAB PO ONE (14:01)
[2024-06-15] MEDS: ASPirin 325 MG TAB PO ONE (14:51)
[2024-06-15] MEDS: SODIUM CHLORIDE 0.9% 1,000 ML IV ONE (15:12)
[2024-06-15] MEDS: PANTOPRAZOLE 40 MG/10 ML VIAL INJ IV ONE ×2 (15:12→22:30)
[2024-06-15] MEDS: MORPHINE SULFATE 4 MG/ML SYR/VIAL IV ONE (15:13)
[2024-06-15] MEDS: ONDANSETRON HCL 4 MG/2 ML VIAL IV ONE (15:13)
[2024-06-15 15:19] VITALS: PULSE 79; RESP 16; O2SAT 96
[2024-06-15 15:43] LABS: Urine Bacteria FEW /hpf (None Seen); Urine Blood Negative /uL (Negative); Urine Clarity Turbid (Clear); Urine Color Yellow (Yellow); Urine Hyaline Cast FEW /lpf (0 - 2); Urine Mucus FEW (None Seen); Urine Protein, UAD 1+ (Negative); Urine Specific Gravity 1.034 (1.001-1.035); Urine Squamous Epithelial Cell FEW /hpf (<5); Urine Urobilinogen 2 mg/dL (Negative); Urine WBC 6 /HPF (0-5); Urine pH 6.5 (5.0-9.0)
[2024-06-15] MEDS ORDERED: NITR-87 PO (16:16)
--- NOTE | 2024-06-15 16:54 | DVH ---
Exam: CT CT AB PEL WO CON-NO ORAL OR IV History: gibleed Comparison Study: [facility] on DOS: 04/08/22 Technique: Multidetector spiral CT of the abdomen was performed from lung bases to pubic symphysis. Imaging was performed without IV contrast. Axial, coronal and sagittal multiplanar reformats were ob tained from the axial data set by the technologist. Radiation Dose : 1. Abdomen/Pelvis: CTDIvol 26 mGy, DLP 1400 mGy*cm. Findings: Evaluation of solid organs is limited due to lack of intravenous contrast use. Lung Bases: No acute or significant lung base finding. Normal heart size. No pleural or pericardial effusion. Liver: The liver is normal in size. No focal lesions. Gallbladder and Biliary Tree: Unremarkable Spleen: Unremarkable Pancreas: The pancreas is grossly normal in appearance. Adrenal Glands: Unremarkable Kidneys: Kidneys are grossly normal without calculi or hydronephrosis. Bladder: Grossly unremarkable for degree of distention. Bowel: Large hiatal hernia Concentric wall thickening of the distal colon may reflect infectious / in flammatory colitis. Diffuse colonic diverticula. The appendix is not visualized; however, no seconda ry findings of acute appendicitis identified. Ascites: Absent Lymphadenopathy: No mesenteric, retroperitoneal or periportal lymphadenopathy. Abdominal Wall and Mesentery: Unremarkable. Vasculature: The visualized abdominal aorta is normal in size and caliber. Evaluation of abdominal a nd pelvic vessels is limited due to lack of intravenous contrast. Pelvic Organs: Unremarkable Musculoskeletal: No aggressive focal bony lesions, acute fractures or dislocation. IMPRESSION: 1. Concentric wall thickening of the distal colon may reflect infectious / inflammatory colitis. 2. Large hiatal hernia. Radiation optimization: All CT scans at this facility use at least one of these dose optimization santi hniques: automated exposure control mA and/or kV adjustment per patient size (includes targeted exam s where dose is matched to clinical indication) or iterative reconstruction.
[2024-06-15] MEDS: metroNIDAZOLE 500MG/100ML 100 ML IV ONE (17:44)
[2024-06-15] MEDS: cefTRIAXone 1GM/50ML D5W 50 ML IV ONE (18:23)
[2024-06-15] MEDS: SODIUM CHLORIDE 0.9% 500 ML IV ONE (22:45)
--- NOTE | 2024-06-15 22:46 | DVHHPRES ---
History of Present Illness Resident Creating Document: DARRELL MCLEAN RESIDENT History of Present Illness Patient is a 73-year-old female with past medical history of acute pericarditis, NSTEMI type 2, hypothyroidism, mild CHF, lupus, who comes in due to midepigastric pain along with bloody emesis. According to the patient, she sta rted feeling a midepigastric pressure-like pain which was 5/10 at onset, without any exacerbating factors and relieved by lying down, associated with dizziness, nausea and vomiting. Patient notes she had a similar pain episode 3 years ago. Per patient, she has had 6 episodes of dark red emesis today. Of note, patient takes Aleve 1-2 times per week, unknown dosage. The time of my assessment, patient had blood pressure 123 x 69 with a heart rate of 103, hemoglobin 15.6 and hematocrit 45.8. EKG did not show any ST-elevation or [place] depression. CT abdomen pelvis showed concentric wall thickening distal colon possible colitis along with a large hiatal hernia. UA showed 1+ leukocyte esterase and a few bacteria. Past Medical History acute pericarditis, NSTEMI type 2, hypothyroidism, mild CHF, lupus Past Surgical History Hysterectomy, cataract surgery Smoke: No ALCOHOL: occassional Drugs: None Review of Systems Constitutional: Yes: Chills, Malaise; No: Fever, Sweats, Weakness, Other Eyes: No: Pain, Vision change, Conjunctivae inflammation, Eyelid inflammation, Other, Redness ENT: No: Ear pain, Ear discharge, Nose pain, Nose discharge, Nose congestion, Mouth pain, Mouth swelling, Throat pain, Throat swelling, Other Respiratory: SOB with excertion; No: Cough, Dry, Shortness of breath, Wheezing, Hemoptysis, Pleuritic Pain, Sputum, Wheezing, Other Cardiovascular: Chest Pain; No: Palpitations, Orthopnea, Paroxysmal Noc. Dyspnea, Edema, Lt Headedness, Other Gastrointestinal: Nausea, Vomiting; No: Abdominal Pain, Diarrhea, Constipation, Melena, Hematochezia, Other Genitourinary: No Dysuria, No Frequency, No Incontinence, No Hematuria, No Retention, No Other Musculoskeletal: No: other, neck pain, shoulder pain, arm pain, back pain, hand pain, leg pain, foot pain Skin: No: Rash, Lesions, Jaundice, Bruising, Other Neurological: No: Weakness, Numbness, Incoordination, Change in speech, Confusion, Seizures, Other Allergies: Coded Allergies: NO KNOWN ALLERGIES (Unverified , 07/07/17) Medications Current Medications Medications Dose Ordered Sig/Rosibel Route Start Time Stop Time Status Last Admin Dose Admin Ondansetron HCl 4 mg Q4HP PRN IV 06/15/24 22:30 Exam Vital Signs Vital Signs Date Time Temp Pulse Resp B/P (MAP) Pulse Ox O2 Delivery O2 Flow Rate FiO2 06/15/24 20:19 98.7 103 12 123/69 (87) 98 98.7 06/15/24 15:19 Room Air* 0 21 General Appearance: Alert, Oriented X3, Cooperative, mild distress HEENT: Atraumatic, PERRLA, EOMI, Other (Dry mucous membrane) Respiratory: Clear to auscultation, Normal air movement Cardiovascular: Normal S1, Normal S2, No murmurs Abdominal: Normal bowel sounds, Other (Generalized abdominal tenderness to palpation, midepigastric tenderness to palpation) Extremities: No edema, Normal pulses, Other (Trace lower extremity edema) Skin: No rashes, No significant lesion Neuro: Normal speech, Sensation intact Psych/Mental Status: Mental status NL, Mood NL Labs/Xrays Labs Test 06/15/24 15:15 06/15/24 15:11 06/15/24 13:05 Range/Units Urine Color Yellow Yellow Urine Clarity Turbid H Clear Urine pH 6.5 5.0-9.0 Urine Specific [place] 1.034 1.001-1.035 Urine Protein 1+ H Negative Urine Ketones 2+ H Negative Urine Blood Negative Negative /uL Urine Nitrite Negative Negative Urine Bilirubin Negative Negative Urine Urobilinogen 2 H Negative mg/dL Urine Leukocyte Esterase 1+ Negative /uL Urine RBC 4 0 - 4 /hpf Urine Microscopic WBC 6 H 0-5 /HPF Urine Squamous Epithelial Cells Few <5 /hpf Urine Bacteria Few H None Seen /hpf Urine Hyaline Casts Few 0 - 2 /lpf Urine Mucus Few None Seen Urine Glucose Normal Normal mg/dL Troponin I High Sensitivity 12 </=34 ng/L White Blood Count 9.7 4.4-10.8 10^3/uL Red Blood Count 4.81 4.0-5.20 10^6/uL Hemoglobin 15.6 12.2-16.2 g/dL Hematocrit 45.8 36.0-46.0 % Mean Corpuscular Volume 95.2 80.0-100.0 fL Mean Corpuscular Hemoglobin 32.5 H 28.0-32.0 pg Mean Corpuscular Hemoglobin Concent 34.1 32.0-36.0 g/dL Red Cell Distribution Width 13.5 11.8-14.3 % Platelet Count 239 140-450 10^3/uL Mean Platelet Volume 8.1 6.9-10.8 fL Neutrophils (%) (Auto) 85.6 H 37.0-80.0 % Lymphocytes (%) (Auto) 8.2 L 10.0-50.0 % Monocytes (%) (Auto) 5.5 0.0-12.0 % Eosinophils (%) (Auto) 0.4 0.0-7.0 % Basophils (%) (Auto) 0.3 0.0-2.0 % Neutrophils # (Auto) 8.3 1.6-8.6 10 ^3/uL Lymphocytes # (Auto) 0.8 0.4-5.4 10 ^3/uL Monocytes # (Auto) 0.5 0-1.3 10 ^3/uL Eosinophils # (Auto) 0 0-0.8 10 ^3/uL Basophils # (Auto) 0 0-0.2 10 ^3/uL Nucleated Red Blood Cells 0.1 % Sodium Level 139 136-145 mmol/L Potassium Level 3.9 3.5-5.1 mmol/L Chloride Level 99 98-107 mmol/L Carbon Dioxide Level 29 20-31 mmol/L Anion Gap 11 5-15 Blood Urea Nitrogen 21 9-23 mg/dL Creatinine 0.92 0.550-1.02 mg/dL Glomerular Filtration Rate Calc 66 >90 mL/min BUN/Creatinine Ratio 22.8 H 10.0-20.0 Serum Glucose 104 74-106 mg/dL Calcium Level 10.4 8.7-10.4 mg/dL Assessment/Plan Assessment/Plan Upper GI bleed Large hiatal hernia NSAID/Alleve usage 1-2 times per week Infectious versus inflammatory colitis Transaminitis Hyperbilirubinemia, serum bilirubin 1.8 - CT abdomen pelvis: Concentric wall thickening of the distal colon may reflect infectious/inflammatory colitis. Large hiatal hernia. - CXR: Large hiatal hernia. Kyphotic thoracic spine increased interstitial markings. No infiltrates or effusions. - 0.5 L IV NS bolus - IV Protonix 80 mg loading dose, IV Protonix 40 mg b.i.d. - IV ceftriaxone, IV metronidazole - IV Zofran as needed for nausea - GI consulted - hepatitis panel - RUQ ultrasound: Liver is small and hypoechoic 14.4 cm in Romansh small for an adult female. Limited study of the right upper quadrant with no abnormalities. Hypothyroidism - resumed home medication levothyroxine 125 mcg Acute complicated UTI - IV ceftriaxone History of lupus - monitor - hydroxychloroquine at home Goals of care: Full code, discussed for >16 minutes on 06/15/2024 Plan discussed with patient Plan discussed with Dr. Sanchez Plan discussed with: Patient, Other (RN) My Orders Orders - DARRELL MCLEAN RESIDENT Procedure Category Date Status Time Admit ADMIT 06/15/24 Transmitted 22:30 Allergies JAGDISH 06/15/24 In Process 22:30 Code Status CODE 06/15/24 Transmitted 22:30 Ondansetron Hcl PHA 06/15/24 In Process (Zofran) 22:30 Complete Blood Count LAB 06/16/24 Verified 04:00 Comprehensive LAB 06/16/24 Verified Metabolic Panel 04:00 Npo (Nothing By DIET 06/16/24 Transmitted Mouth) Diet Breakfast Echo 2d Mode Cardiac US 06/15/24 Logged DOP 22:30 Condition: Unstable JAGDISH 06/15/24 In Process 22:30 Sequential JAGDISH 06/15/24 In Process Compression Device Notify Md Of Changes JAGDISH 06/15/24 In Process From Base 22:30 Stat Ekg For Chest JAGDISH 06/15/24 In Process Pain 22:30 B-Type Natriuretic LAB 06/15/24 Logged Peptide 22:30 Type And Screen BBK 06/15/24 Logged 22:30 * Gi D[employer] Automation Machine Operator CONS 06/15/24 Transmitted 22:30 Stool Occult Blood LAB 06/15/24 Logged 22:30 Date of Service: Jun 15, 2024 Billing Provider: CIRO SANCHEZ MD Common Visit Codes: 38159-HSPSVSU INP/OBS CARE (HIGH) Secondary Visit Codes: 87265-DSNDONDT CARE PLAN 30 MINUTES DARRELL MCLEAN Jun 15, 2024 22:46 CIRO SANCHEZ MD Jun 16, 2024 10:00
[2024-06-15 23:36] LABS: Albumin 4.7 g/dL (3.2-4.8); Total Protein 7.8 g/dL (5.7-8.2)
[2024-06-15 23:37] LABS: Bilirubin, Total 1.8 mg/dL (0.2-1.0)
--- NOTE | 2024-06-15 23:56 | DVH ---
INDICATION: ruq, liver TECHNIQUE: Multiple real-time sonographic images were obtained of the right upper quadrant. COMPARISON: None FINDINGS: Liver is small and hypoechoic measures 14.4 cm in span which is small for an adult female Portal vein flow is hepatopetal. Right kidney measures 11.15 cm in length without cyst stone or hydronephrosis is normal corticomedull cole differentiation. Gallbladder is unremarkable has a 1.9 mm thick wall. Common bile duct measures 3.8 mm in caliber whic h is normal for age. Pancreas not appreciated. Due to overlying bowel gas IMPRESSION: 1. Limited study of the right upper quadrant with no abnormalities
--- NOTE | 2024-06-15 23:58 | DVH ---
XY CHEST TWO VIEWS ROUTINE CLINICAL HISTORY: chest pain COMPARISON: None TECHNIQUE: Frontal and lateral view of the chest was obtained FINDINGS: patient is very kyphotic anterior wedging of multiple vertebral bodies. There is a large hiatal hernia midline with air-fluid levels hiatal hernia measures approximately 9.9 x 8 cm. Lungs demonstrate minimal chronic interstitial changes no infiltrates or effusions. Left ventricles b orderline size IMPRESSION: Large hiatal hernia. Kyphotic thoracic spine and increased interstitial markings. No infi ltrates or effusions
[2024-06-16] VITALS (8 sets, daily range): BP systolic 112–145; BP diastolic 58–86; PULSE 68–108; RESP 16–19; TEMP 98.1–99.2; O2SAT 93–100
[2024-06-16] MEDS: ONDANSETRON HCL 4 MG/2 ML VIAL IV PRN (01:56)
[2024-06-16] MEDS: MORPHINE SULFATE INJ 2 MG/ml SYRG IV ONE (01:57)
[2024-06-16 03:19] LABS: Hematocrit 43.4 % (36.0-46.0); Hemoglobin 14.8 g/dL (12.2-16.2)
[2024-06-16 05:39] LABS: Basophils # (auto) 0 10 ^3/uL (0-0.2); Basophils % (auto) 0.1 % (0.0-2.0); Eosinophils # (auto) 0 10 ^3/uL (0-0.8); Hematocrit 43.6 % (36.0-46.0); Hemoglobin 14.9 g/dL (12.2-16.2); Lymphocytes # (auto) 0.9 10 ^3/uL (0.4-5.4); Mean Corpuscular Hemoglobin 32.7 pg (28.0-32.0); Mean Corpuscular Hgb Conc. 34.2 g/dL (32.0-36.0); Mean Corpuscular Volume 95.8 fL (80.0-100.0); Monocytes # (auto) 0.7 10 ^3/uL (0-1.3); Monocytes % (auto) 8.6 % (0.0-12.0); Neutrophils % (auto) 81.3 % (37.0-80.0); Nucleated Red Blood Cells % 0.1 %; Platelet Count (auto) 218 10^3/uL (140-450); Red Blood Cells 4.55 10^6/uL (4.0-5.20); Red Cell Distribution Width 13.6 % (11.8-14.3); White Blood Cell 8.6 10^3/uL (4.4-10.8)
[2024-06-16 05:58] LABS: Albumin 4.1 g/dL (3.2-4.8); Anion Gap 6 (5-15); BUN/Creatinine Ratio 20.4 (10.0-20.0); Blood Urea Nitrogen 21 mg/dL (9-23); Calcium 9.6 mg/dL (8.7-10.4); Chloride 101 mmol/L (98-107); Potassium 3.7 mmol/L (3.5-5.1); Sodium 139 mmol/L (136-145); Total Protein 7.3 g/dL (5.7-8.2)
[2024-06-16 05:59] LABS: Bilirubin, Total 0.9 mg/dL (0.2-1.0)
[2024-06-16 06:03] LABS: Alanine Aminotransferase 222 U/L (7-40); Alkaline Phosphatase 117 U/L (46-116); Aspartate Aminotransferase 236 U/L (13-40); Carbon Dioxide 32 mmol/L (20-31); Glucose 106 mg/dL (74-106)
[2024-06-16] MEDS: metroNIDAZOLE 500MG/100ML 100 ML IV SCH (06:04)
[2024-06-16] MEDS: LEVOTHYROXINE SODIUM 100 MCG TAB PO SCH (06:58)
[2024-06-16] MEDS: LEVOTHYROXINE SODIUM 25 MCG TAB PO SCH (06:59)
[2024-06-16] MEDS: SODIUM CHLORIDE 0.9% 1,000 ML IV SCH (10:15)
--- NOTE | 2024-06-16 10:34 | DVHPNRES ---
Progress Note Date Seen: Jun 16, 2024 Resident Creating Document: GRACIA CHUNG RESIDENT Medical Necessity Reason Pt with a Central, PICC or Fol: No Subjective Review of Systems Patient is a 73-year-old female with past medical history of acute pericarditis, NSTEMI type 2, hypothyroidism, lupus, who comes in due to midepigastric pain along with bloody emesis. According to the patient, she started feeling a midepigastric pressure-like pain which was 5/10 at onset, without any exacerbating factors and relieved by lying down, associated with dizziness, nausea and vomiting. Patient notes she had a similar pain episode 3 years ago. Per patient, she has had 6 episodes of dark red emesis today. Of note, patient takes Aleve 1-2 times per week, unknown dosage for Lupus. Patient was seen and examined on the bedside. She is alert oriented x3. complaint of epigastric pain, diffuse lower abdominal pain and burning sensation in the urine. no other active complaint Constitutional: No: Fever, Chills, Sweats, Weakness, Malaise, Other Eyes: No: Pain, Vision change, Conjunctivae inflammation, Eyelid inflammation, Other, Redness ENT: No: Ear pain, Ear discharge, Nose pain, Nose discharge, Nose congestion, Mouth pain, Mouth swelling, Throat pain, Throat swelling, Other Respiratory: Shortness of breath, improving No: Cough, Dry,Wheezing, Hemoptysis, Pleuritic Pain, Sputum, Wheezing, Other Cardiovascular: No: Chest Pain, Palpitations, Orthopnea, Paroxysmal Noc. Dyspnea, Edema, Lt Headedness, Other Gastrointestinal: Nausea, Vomiting, hematemesis, Abdominal Pain, No Diarrhea, Constipation, Melena, Hematochezia, Other Musculoskeletal: No: other, neck pain, shoulder pain, arm pain, back pain, hand pain, leg pain, foot pain Neurological:; No: Weakness, Numbness, Incoordination, Change in speech, Confusion, Seizures Objective vital signs Vital Sign Date Time Temp Pulse Resp B/P (MAP) Pulse Ox O2 Delivery O2 Flow Rate FiO2 06/16/24 08:40 98.1 108 16 134/74 (94) 93 98.1 06/16/24 06:08 Nasal Cannula* 2 28 medications Current Medications Medications Dose Ordered Sig/Rosibel Route Start Time Stop Time Status Last Admin Dose Admin Ondansetron HCl 4 mg Q4HP PRN IV 06/15/24 22:30 06/16/24 01:56 4 MG Ceftriaxone Sodium 50 ml @ 100 mls/hr DAILY@2100 IV 06/16/24 21:00 Metronidazole 100 ml @ 100 mls/hr Q8HR IV 06/16/24 06:00 06/16/24 06:04 100 MLS/HR Pantoprazole Sodium 40 mg BID IV 06/16/24 22:00 Sucralfate 1 gm QID@0600,1130,1700,2200 PO 06/16/24 11:30 UNV Sodium Chloride 1,000 ml @ 75 mls/hr [id number] IV 06/16/24 10:15 UNV Levothyroxine Sodium 125 mcg QAM@0600 PO 06/17/24 06:00 UNV Examination Physical examination: General Appearance: Alert, Oriented X3, Cooperative, No acute distress HEENT: Atraumatic, PERRLA, EOMI, Mucous membrane moist/pink Respiratory: Clear to auscultation, Normal air movement Cardiovascular: Regular rate, Normal S1, Normal S2, No murmurs, no chest wall tenderness Abdominal: Normal bowel sounds, Soft, epigastric tenderness, No hepatospenomegaly, No masses Extremities: No clubbing, No cyanosis, No edema, Normal pulses, No tenderness/swelling Skin: No rashes, No breakdown, No significant lesion Neuro: Normal speech, Strength at 5/5 X4 ext, Normal tone, Sensation intact, Cranial nerves 3-12 NL, Reflexes 2+ Psych/Mental Status: Mental status NL, Mood NL laboratory and microbiology Laboratory Tests 06/16/24 05:20 Test 06/16/24 05:20 Range/Units Serum Glucose 106 74-106 mg/dL Labs and/or images reviewed: Labs reviewed by me, Image(s) reviewed by me Problem List/Assessment/Plan Problem List/Assessment/Plan Assessment and plan: # Possible upper GI bleeding likely due to gastritis # possible NSAID induced gastritis # Large hiatal hernia # Transaminitis likely due to possible cirrhosis # Acute infectious/ inflammatory colitis - CT abdomen pelvis: Concentric wall thickening of the distal colon may reflect infectious/inflammatory colitis. Large hiatal hernia. - RUQ ultrasound: Liver is small and hypoechoic 14.4 cm which is small for an adult female. Limited study of the right upper quadrant with no abnormalities. - H/H is stable - NPO - IV normal saline at 75 mL/hours - IV Protonix 40 mg b.i.d. - Carafate suspension 1 g p.o. q.i.d. - IV ceftriaxone 1 g daily and IV metronidazole 500 mg t.i.d. - IV ondansetron 4 mg Q 8 p.r.n. - Pending FOBT, hepatitis panel - Consulted GI # Acute complicated cystitis - UA was consistent with UTI - Ordered urine bacterial culture - IV ceftriaxone 1 g daily # Chronic hypothyroidism - levothyroxine 125 mcg at q.a.m. daily # History of lupus - continue home medication. # DVT prophylaxis - Hold due to the possibility of the bleeding Goal of care discussed with the patient for more than 20 minutes full code Plan discussed with Dr. Sanchez Plan discussed with: Patient, Other My Orders My Orders Orders - GRACIA CHUNG Procedure Category Date Status Time Sucralfate Susp PHA 06/16/24 Logged (Carafate Susp) 11:30 Vitamin D, 25-Hydroxy LAB 06/16/24 In Process 07:44 Sodium Chloride 0.9% PHA 06/16/24 Logged 10:15 Levothyroxine Tablet PHA 06/17/24 Logged (Synthroid Tablet) 06:00 Date of Service: Jun 16, 2024 Billing Provider: CIRO SANCHEZ MD Common Visit Codes: [id number] INP/OBS CARE(HIGH) GRACIA CHUNG RESIDENT Jun 16, 2024 10:34 CIRO SANCHEZ MD Jun 16, 2024 19:21
[2024-06-16] MEDS: SUCRALFATE 1 GM/10 ML ORAL SUSP PO SCH (11:51)
--- NOTE | 2024-06-16 11:59 | ECG ---
[facility] Test Date: 2024-06-15 Test Time: 12:43:02 Pat Name: AMANDO OBREGON Department: ED Room: 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
--- NOTE | 2024-06-16 14:06 | DVHINCON2 ---
GI Consult Consult Note GI consult note Date of Consultation: 06/16/2024 Chief Complaint: Upper GI bleed Referring Physician: Dr. Lim H&P: 73-year-old female with past medical history, of acute pericarditis NSTEMI, hypothyroidism mild CHF lupus presented to ER with epigastric pain with bloody emesis. Patient's symptoms started one day ago,. patient had 5-6 episodes of bloody emesis yesterday. No nausea or vomiting at this time. No melena or red blood in stool. Patient has a history of GERD and takes Protonix for the last 4-5 years. Patient admits to taking NSAIDs 2-3 times per week as needed. No EGD in past. Colonoscopy 5-6 years ago unsure about results. Patient takes aspirin 81 mg yesterday last dosage. No other blood thinners Past Medical History: acute pericarditis, NSTEMI type 2, hypothyroidism, mild CHF, lupus Past Surgical History: Hysterectomy, cataract surgery Social History: NO smoking, drinking ETOH and use of illegal drugs. Family History: Noncontributory Review of Systems: Constitutional: no fever, chill, weight loss HEENT: no eye pain, no hearing loss, no oral lesion, no scleral icterus Heart: no chest pain, no chest pressure Lung: no cough, no dyspnea with exertion Abdomen: see HPI Physical exam: General: NAD, AAOX3 Chest: lung edwards clear to auscultation Heart: RRR, no murmur Abdomen: [id number] epigastric tenderness to palpation, +BS Labs: Labs Test 06/16/24 05:20 06/15/24 22:50 06/15/24 15:15 06/15/24 15:11 Range/Units White Blood Count 8.6 4.4-10.8 10^3/uL Red Blood Count 4.55 4.0-5.20 10^6/uL Hemoglobin 14.9 12.2-16.2 g/dL Hematocrit 43.6 36.0-46.0 % Mean Corpuscular Volume 95.8 80.0-100.0 fL Mean Corpuscular Hemoglobin 32.7 H 28.0-32.0 pg Mean Corpuscular Hemoglobin Concent 34.2 32.0-36.0 g/dL Red Cell Distribution Width 13.6 11.8-14.3 % Platelet Count 218 140-450 10^3/uL Mean Platelet Volume 7.9 6.9-10.8 fL Neutrophils (%) (Auto) 81.3 H 37.0-80.0 % Lymphocytes (%) (Auto) 10.0 10.0-50.0 % Monocytes (%) (Auto) 8.6 0.0-12.0 % Eosinophils (%) (Auto) 0.0 0.0-7.0 % Basophils (%) (Auto) 0.1 0.0-2.0 % Neutrophils # (Auto) 7.0 1.6-8.6 10 ^3/uL Lymphocytes # (Auto) 0.9 0.4-5.4 10 ^3/uL Monocytes # (Auto) 0.7 0-1.3 10 ^3/uL Eosinophils # (Auto) 0 0-0.8 10 ^3/uL Basophils # (Auto) 0 0-0.2 10 ^3/uL Nucleated Red Blood Cells 0.1 % Sodium Level 139 136-145 mmol/L Potassium Level 3.7 3.5-5.1 mmol/L Chloride Level 101 98-107 mmol/L Carbon Dioxide Level 32 H 20-31 mmol/L Anion Gap 6 5-15 Blood Urea Nitrogen 21 9-23 mg/dL Creatinine 1.03 H 0.550-1.02 mg/dL Glomerular Filtration Rate Calc 57 >90 mL/min BUN/Creatinine Ratio 20.4 H 10.0-20.0 Serum Glucose 106 74-106 mg/dL Hemoglobin A1c 5.3 <5.7 % A1C Calcium Level 9.6 8.7-10.4 mg/dL Total Bilirubin 0.9 0.2-1.0 mg/dL Aspartate Amino Transferase (AST) 236 H 13-40 U/L Alanine Aminotransferase (ALT) 222 H 7-40 U/L Alkaline Phosphatase 117 H 46-116 U/L Total Protein 7.3 5.7-8.2 g/dL Albumin 4.1 3.2-4.8 g/dL Vitamin D 25-Hydroxy 55.9 30.0-100 ng/mL B-Type Natriuretic Peptide 49.93 0-100 pg/mL Thyroid Stimulating Hormone (TSH) 1.21 0.55-4.78 uIU/mL Urine Color Yellow Yellow Urine Clarity Turbid H Clear Urine pH 6.5 5.0-9.0 Urine Specific [place] 1.034 1.001-1.035 Urine Protein 1+ H Negative Urine Ketones 2+ H Negative Urine Blood Negative Negative /uL Urine Nitrite Negative Negative Urine Bilirubin Negative Negative Urine Urobilinogen 2 H Negative mg/dL Urine Leukocyte Esterase 1+ Negative /uL Urine RBC 4 0 - 4 /hpf Urine Microscopic WBC 6 H 0-5 /HPF Urine Squamous Epithelial Cells Few <5 /hpf Urine Bacteria Few H None Seen /hpf Urine Hyaline Casts Few 0 - 2 /lpf Urine Mucus Few None Seen Urine Glucose Normal Normal mg/dL Troponin I High Sensitivity 12 </=34 ng/L Test 06/15/24 13:05 Range/Units Imaging: CT abdomen pelvis IMPRESSION: 1. Concentric wall thickening of the distal colon may reflect infectious / infl ammatory colitis. 2. Large hiatal hernia. Abdominal ultrasound IMPRESSION: 1. Limited study of the right upper quadrant with no abnormalities Assessment: GI bleed Abdominal pain History of GERD Large hiatal hernia Possible colitis Elevated liver function tests Plan: Discussed with Dr. Bhatt - Pt will be scheduled for an EGD 06/17/2024. Pt was informed of the risks (bleeding, infection, perforation, reaction to sedation medications and cardiopulmonary arrest) and benefit and is agreeable to undergo the procedures. Protonix and Zofran Hepatitis panel DC NSAIDs discussed Discussed plan with patient and RN Thank you for this consult Date of Service: Jun 16, 2024 Billing Provider: PAULA BEDOLLA Common Visit Codes: CONSULT ONLY Consultation Codes: [id number] CONSULT <60MIN PAULA BEDOLLA Jun 16, 2024 14:06
[2024-06-16] MEDS: ACETAMINOPHEN 325 MG TAB PO PRN (16:41)
[2024-06-16 16:44] LABS: Bilirubin, Direct 0.9 mg/dL (<0.3)
[2024-06-16 17:11] LABS: INR 1.11 (0.9-1.15); Prothrombin Time 11.6 sec (9.3-11.8)
[2024-06-16] MEDS: cefTRIAXone 1GM/50ML D5W 50 ML IV SCH (22:10)
[2024-06-16] MEDS: PANTOPRAZOLE 40 MG/10 ML VIAL INJ IV SCH (22:11)
[2024-06-17] VITALS (10 sets, daily range): BP systolic 106–122; BP diastolic 60–72; PULSE 80–111; RESP 18–23; TEMP 36.7; O2SAT 90–100
[2024-06-17] MEDS: LEVOTHYROXINE SODIUM 25 MCG TAB PO SCH (05:28)
[2024-06-17] MEDS: LEVOTHYROXINE SODIUM 100 MCG TAB PO SCH (05:28)
[2024-06-17 05:31] LABS: Basophils # (auto) 0 10 ^3/uL (0-0.2); Basophils % (auto) 0.2 % (0.0-2.0); Eosinophils # (auto) 0 10 ^3/uL (0-0.8); Eosinophils % (auto) 0.2 % (0.0-7.0); Hematocrit 40.9 % (36.0-46.0); Hemoglobin 13.4 g/dL (12.2-16.2); Lymphocytes # (auto) 0.4 10 ^3/uL (0.4-5.4); Mean Corpuscular Hemoglobin 31.7 pg (28.0-32.0); Mean Corpuscular Hgb Conc. 32.8 g/dL (32.0-36.0); Mean Corpuscular Volume 96.7 fL (80.0-100.0); Monocytes # (auto) 0.9 10 ^3/uL (0-1.3); Monocytes % (auto) 8.2 % (0.0-12.0); Neutrophils # (auto) 9.9 10 ^3/uL (1.6-8.6); Neutrophils % (auto) 87.4 % (37.0-80.0); Nucleated Red Blood Cells % 0.1 %; Platelet Count (auto) 186 10^3/uL (140-450); Red Blood Cells 4.23 10^6/uL (4.0-5.20); Red Cell Distribution Width 13.8 % (11.8-14.3); White Blood Cell 11.3 10^3/uL (4.4-10.8)
[2024-06-17] MEDS ORDERED: LEVOTHYROXINE SODIUM 50 MCG TAB PO SCH (06:00)
[2024-06-17 06:01] LABS: Albumin 3.6 g/dL (3.2-4.8); Alkaline Phosphatase 110 U/L (46-116); Anion Gap 7 (5-15); BUN/Creatinine Ratio 16.9 (10.0-20.0); Blood Urea Nitrogen 12 mg/dL (9-23); Carbon Dioxide 27 mmol/L (20-31); Chloride 104 mmol/L (98-107); Glucose 78 mg/dL (74-106); Sodium 138 mmol/L (136-145); Total Protein 6.3 g/dL (5.7-8.2)
[2024-06-17 06:02] LABS: Bilirubin, Total 0.8 mg/dL (0.2-1.0)
[2024-06-17 06:08] LABS: Alanine Aminotransferase 147 U/L (7-40); Aspartate Aminotransferase 101 U/L (13-40); Potassium 3.4 mmol/L (3.5-5.1)
[2024-06-17 06:15] LABS: Calcium 8.9 mg/dL (8.7-10.4)
--- NOTE | 2024-06-17 08:13 | ECG ---
[facility] Test Date: 2024-06-16 Test Time: 16:08:06 Pat Name: AMANDO OBREGON Department: Room: 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
[2024-06-17] MEDS ORDERED: SODIUM CHL 0.9% 100 ML IV SCH (11:15)
[2024-06-17] MEDS: SODIUM CHL 0.9% 100 ML IV ONE (11:15)
[2024-06-17] MEDS: POTASSIUM CHL 20MEQ/50ML 50 ML IV ONE (11:49)
--- NOTE | 2024-06-17 12:21 | DVHSR ---
APPROVED REPORT EXAM: Two-dimensional and M-mode echocardiogram with Doppler and color Doppler. Blood Pressure: 145/86 mmHg INDICATION Hx mild CHF? RISK FACTORS Obesity: Height: 5' 7", Weight: 231 DIMENSIONS LVDd5.4 (3.8-5.7cm)LA (2D)3.5 (1.9-4.0cm)Aortic Root3.5 (2.0-3.7cm) LVDs4.1 (2.5-4.0cm)LA (MM) (1.9-4.0cm)Aortic Cusp Exc2.1 (1.5-2.0cm) EF (%) 50.0 (55-70%)Rt. Atrium3.8 (1.9-4.0cm)Asc. Aorta cm IVSd1.2 (0.7-1.1cm)RV (D) (1.8-2.4cm) PWd1.1 (0.7-1.1cm) Mitral Valve MitralMitral Stenosis E wave0.60m/sMV Mean GR.mmHg A wave0.80m/sMV Peak GR.mmHg E/A ratio0.82D MVAcm2 Aortic Valve Aortic ValveAortic Stenosis V10.80m/[place] Mean GR.6mmHg V21.50m/[place] Peak GR.10mmHg LVOT Diameter2.3 (1.8-2.4cm)Doppler AVA2.21cm2 Pulmonic Valve V20.80m/s Tricuspid Valve TR Velocity2.70m/s [id number] Conclusion lvef 50% by visual estimate dilated LV RV not well seen ,likely enlarged mild LVH left atrium enlarged
[2024-06-17 12:37] LABS: Hepatitis A Total Antibody Positive (Negative)
[2024-06-17 12:38] LABS: Hepatitis B Core Total AB Negative (Negative); Hepatitis B Surface Antibody Negative (Negative)
[2024-06-17 12:39] LABS: Hepatitis B Surface Antigen Negative (Negative)
[2024-06-17 12:40] LABS: Hepatitis C Antibody Negative (Negative)
[2024-06-17] MEDS ORDERED: LIDOCAINE 2% (LOCAL ANESTH.) PF 5ml SDV ONE (14:34)
[2024-06-17] MEDS ORDERED: PROPOFOL 10 MG/ML 20 ML IV ONE (14:34)
--- NOTE | 2024-06-17 15:55 | DVHOP2 ---
Operative Report DATE OF OPERATION: 06/17/24 PROCEDURE: Upper Endoscopy with biopsy. PREOPERATIVE INDICATION: The patient is a 73 -year-old female undergoing endoscopy for atypical chest pain nausea vomiting and upper GI bleed POSTOPERATIVE DIAGNOSES: 1. Patient had a large to 6-7 cm sliding-type hiatal hernia with Perez's erosions of the diaphragmatic impingement 2. There was grade B erosive esophagitis with some ulcerations at the GE junct ion from which biopsies were obtained 3. Patient had mild gastritis with erosions otherwise normal examination up to the 2nd and 3rd part of the duodenum PROCEDURE PERFORMED BY: Indra Bhatt GI NURSE: Roldan SCOPE: Olympus videoendoscope. ASA CLASS: 2 PREOPERATIVE MEDICATIONS: MAC sedation, Radu García PROCEDURE IN DETAIL: After obtaining an informed consent, the patient was placed on left lateral decubitus position. The patient was then sedated with the above medications. A bite block was placed between her teeth. The endoscope was then passed through the oropharynx, into the esophagus, and through the stomach and pylorus up to the second and third part of the duodenum. The endoscope was then withdrawn. The 2nd and 3rd part of the duodenum and the duodenal bulb were normal. There was good bile drainage. Duodenal biopsies were obtained. The pre-pyloric area antrum and body showed mild gastritis with some hyperemia erythema and superficial erosions. On retroflexion the fundus cardia and angularis were normal. A hiatal hernia was noted with linear erosions of the diaphragmatic impingement. The endoscope was then withdrawn into distal esophagus where the patient had a large 6-7 cm sliding-type hiatal hernia. There were linear ulcers of the diaphragmatic impingement from which biopsies were obtained. Patient also had erosive esophagitis at the GE junction with the GE junction ulceration and grade B esophagitis Biopsies were obtained from this area. The remaining distal and proximal esophagus and oropharynx were unremarkable. There was no fresh or old blood in the upper GI tract at this time.The patient tolerated the procedure well without difficulty. COMPLICATIONS : None SPECIMENS: Duodenal biopsies Gastric biopsies Biopsy within hiatal hernia sac at diaphragmatic impingement GE junction biopsies DISPOSITION: Transfer back to the floor Stable PLAN: 1. Await for biopsy result 2. Will place pt on Protonix 40 mg bid IV 3. Carafate suspension 1 g p.o. 4 times a day 4. Lifestyle and dietary modifications for GERD 5. DC aspirin NSAIDs smoking alcohol 6. Soft mechanical diet advance as tolerated 7. Outpatient follow up with me in 4-6 weeks to review results and discuss further management INDRA BHATT MD Jun 17, 2024 15:55
[2024-06-17] MEDS ORDERED: LEVO750T40 PO (18:23)
[2024-06-17] MEDS ORDERED: MET500T PO (18:23)
[2024-06-17] MEDS ORDERED: PANT40T PO (18:24)
[2024-06-17] MEDS ORDERED: SUCR1SUS26 PO (18:24)
--- NOTE | 2024-06-17 18:30 | DVHDSRES ---
Discharge Summary Date of Admission Resident Creating Document: DEEP KOVACS RESIDENT Jun 15, 2024 at 22:30 Date of Discharge: Jun 17, 2024 Labs/Diagnostic Data: Laboratory Results Test 06/17/24 04:55 06/16/24 15:50 06/16/24 05:20 06/15/24 22:50 White Blood Count 11.3 10^3/uL (4.4-10.8) Red Blood Count 4.23 10^6/uL (4.0-5.20) Hemoglobin 13.4 g/dL (12.2-16.2) Hematocrit 40.9 % (36.0-46.0) Mean Corpuscular Volume 96.7 fL (80.0-100.0) Mean Corpuscular Hemoglobin 31.7 pg (28.0-32.0) Mean Corpuscular Hemoglobin Concent 32.8 g/dL (32.0-36.0) Red Cell Distribution Width 13.8 % (11.8-14.3) Platelet Count 186 10^3/uL (140-450) Mean Platelet Volume 8.0 fL (6.9-10.8) Neutrophils (%) (Auto) 87.4 % (37.0-80.0) Lymphocytes (%) (Auto) 4.0 % (10.0-50.0) Monocytes (%) (Auto) 8.2 % (0.0-12.0) Eosinophils (%) (Auto) 0.2 % (0.0-7.0) Basophils (%) (Auto) 0.2 % (0.0-2.0) Neutrophils # (Auto) 9.9 10 ^3/uL (1.6-8.6) Lymphocytes # (Auto) 0.4 10 ^3/uL (0.4-5.4) Monocytes # (Auto) 0.9 10 ^3/uL (0-1.3) Eosinophils # (Auto) 0 10 ^3/uL (0-0.8) Basophils # (Auto) 0 10 ^3/uL (0-0.2) Nucleated Red Blood Cells 0.1 % Sodium Level 138 mmol/L (136-145) Potassium Level 3.4 mmol/L (3.5-5.1) Chloride Level 104 mmol/L (98-107) Carbon Dioxide Level 27 mmol/L (20-31) Anion Gap 7 (5-15) Blood Urea Nitrogen 12 mg/dL (9-23) Creatinine 0.71 mg/dL (0.550-1.02) Glomerular Filtration Rate Calc 90 mL/min (>90) BUN/Creatinine Ratio 16.9 (10.0-20.0) Serum Glucose 78 mg/dL (74-106) Calcium Level 8.9 mg/dL (8.7-10.4) Total Bilirubin 0.8 mg/dL (0.2-1.0) Aspartate Amino Transferase (AST) 101 U/L (13-40) Alanine Aminotransferase (ALT) 147 U/L (7-40) Alkaline Phosphatase 110 U/L (46-116) Total Protein 6.3 g/dL (5.7-8.2) Albumin 3.6 g/dL (3.2-4.8) Prothrombin Time 11.6 sec (9.3-11.8) Prothrombin Time INR 1.11 (0.9-1.15) Hemoglobin A1c 5.3 % A1C (<5.7) Vitamin D 25-Hydroxy 55.9 ng/mL (30.0-100) Direct Bilirubin 0.9 mg/dL (<0.3) B-Type Natriuretic Peptide 49.93 pg/mL (0-100) Thyroid Stimulating Hormone (TSH) 1.21 uIU/mL (0.55-4.78) Test 06/15/24 15:15 06/15/24 15:11 06/15/24 13:05 Urine Color Yellow (Yellow) Urine Clarity Turbid (Clear) Urine pH 6.5 (5.0-9.0) Urine Specific [place] 1.034 (1.001-1.035) Urine Protein 1+ (Negative) Urine Ketones 2+ (Negative) Urine Blood Negative /uL (Negative) Urine Nitrite Negative (Negative) Urine Bilirubin Negative (Negative) Urine Urobilinogen 2 mg/dL (Negative) Urine Leukocyte Esterase 1+ /uL (Negative) Urine RBC 4 /hpf (0 - 4) Urine Microscopic WBC 6 /HPF (0-5) Urine Squamous Epithelial Cells Few /hpf (<5) Urine Bacteria Few /hpf (None Seen) Urine Hyaline Casts Few /lpf (0 - 2) Urine Mucus Few (None Seen) Urine Glucose Normal mg/dL (Normal) Troponin I High Sensitivity 12 ng/L (</=34) Hepatitis A Antibody Total Positive (Negative) Hepatitis B Surface Antigen Negative (Negative) Hepatitis B Surface Antibody Negative (Negative) Hepatitis B Core Total Antibody Negative (Negative) Hepatitis C Antibody Negative (Negative) Other Laboratory Tests 06/17/24 04:55 Brief Hx & Hospital Course: Patient is a 73-year-old female with past medical history of acute pericarditis, NSTEMI type 2, hypothyroidism, lupus, who comes in due to midepigastric pain along with bloody emesis. According to the patient, she started feeling a midepigastric pressure-like pain which was 5/10 at onset, without any exacerbating factors and relieved by lying down, associated with dizziness, nausea and vomiting. Patient notes she had a similar pain episode 3 years ago. Per patient, she has had 6 episodes of dark red emesis today. Of note, patient takes Aleve 1-2 times per week, unknown dosage for Lupus. GI consultation was done. Underwent EGD today. 1. Patient had a large to 6-7 cm sliding-type hiatal hernia with Perez's erosions of the diaphragmatic impingement 2. There was grade B erosive esophagitis with some ulcerations at the GE junction from which biopsies were obtained 3. Patient had mild gastritis with erosions otherwise normal examination up to the 2nd and 3rd part of the duodenum.. Patient will be discharged home with Protonix 40 mg p.o. daily, Carafate 1 g Q 80, antibiotic levofloxacin and metronidazole alkaline his. Patient will be advised to follow with primary care physician. Condition at Discharge: Stable Final Diagnosis/Problems List large to 6-7 cm sliding-type hiatal hernia grade B erosive esophagitis with some ulcerations Mild gastritis Transaminitis likely due to possible cirrhosis Acute infectious/ inflammatory colitis Acute complicated cystitis History of lupus Discharge Disposition: Home Discharge Instruct/Medications Diet: Regular Activity: No Restrictions, As Tolerated Follow Up/Referral: -follow up with pcp in 2 week Medications: see prescription Discharge Statement: "Patient was advised to return to the ER or call 911 if any headaches, dizziness, shortness of breath, chest pain, abdominal pain, bleeding, fevers, or worsening of medical condition. Patient was counseled about treatment plan, medications, possible side effects, patientverbalized understanding. All questions were answered to the best of my ability. This discharge took greater then 30 minutes in planning, reviewing documentation, counseling the patient, and discussing with other team members." ASSESSMENT ASSESSMENT Assessment grade B erosive esophagitis Date of Service: Jun 17, 2024 Billing Provider: CIRO VAZQUEZ MD Common Visit Codes: 69183-UTV/OBS DISCH DAY >30min DEEP KOVACS RESIDENT Jun 17, 2024 18:29 CIRO VAZQUEZ MD Jun 17, 2024 20:06
== END 2024-06-17 20:00 | disposition home or self-care (01) | DRG 391 ==
LOC: ER 12:41 → EDBD 12:41 → OVERFLOW 22:30 → TELE-WESTW 06-16 05:57
PROVIDERS: ADMIT Internal Medicine; ATTEND Emergency Medicine
PROC: 0DB68ZX Excision of Stomach, Via Natural or Artificial Opening Endoscopic, Diagnostic (ICD-10-PCS; 2024-06-17)
PROC: 0DB48ZX Excision of Esophagogastric Junction, Via Natural or Artificial Opening Endoscopic, Diagnostic (ICD-10-PCS; 2024-06-17)
PROC: 0DB98ZX Excision of Duodenum, Via Natural or Artificial Opening Endoscopic, Diagnostic (ICD-10-PCS; principal; 2024-06-17 14:47)
DX: A09 Infectious gastroenteritis and colitis, unspecified (principal); K22.11 Ulcer of esophagus with bleeding; K29.61 Other gastritis with bleeding; K25.4 Chronic or unspecified gastric ulcer with hemorrhage; N30.00 Acute cystitis without hematuria; E03.9 Hypothyroidism, unspecified; K44.9 Diaphragmatic hernia without obstruction or gangrene; R74.01 Elevation of levels of liver transaminase levels; K74.60 Unspecified cirrhosis of liver; I50.9 Heart failure, unspecified; K21.9 Gastro-esophageal reflux disease without esophagitis; F41.9 Anxiety disorder, unspecified; Z79.899 Other long term (current) drug therapy; Z90.710 Acquired absence of both cervix and uterus; Z79.82 Long term (current) use of aspirin; I25.2 Old myocardial infarction
CPT/HCPCS: 36415; 43239; 71046; 74176; 76705; 80048; 80053; 80076; 81001; 82306; 83036; 83880; 84443; 84484; 85014; 85018; 85025; 85610; 86704; 86706; 86708; 86803; 86850; 86900; 86901; 87086; 87340; 93005; 93306; 96365; 96375; G0378; J2003; J2405; J2470; J2704; J3490

== ENCOUNTER → 2024-07-01 | Outpatient (CLI) | payer OTHER ==
[~2024-07-01] MED LIST changes: +LEVO750T40 PO; +MET500T PO; +SUCR1SUS26 PO
[2024-07-01 10:58] LABS: Basophils # (auto) 0 10 ^3/uL (0-0.2); Basophils % (auto) 0.6 % (0.0-2.0); Eosinophils # (auto) 0.2 10 ^3/uL (0-0.8); Eosinophils % (auto) 3.9 % (0.0-7.0); Hematocrit 39.4 % (36.0-46.0); Hemoglobin 13.3 g/dL (12.2-16.2); Lymphocytes # (auto) 0.8 10 ^3/uL (0.4-5.4); Lymphocytes % (auto) 16.2 % (10.0-50.0); Mean Corpuscular Hemoglobin 31.7 pg (28.0-32.0); Mean Corpuscular Hgb Conc. 33.9 g/dL (32.0-36.0); Mean Corpuscular Volume 93.5 fL (80.0-100.0); Monocytes # (auto) 0.5 10 ^3/uL (0-1.3); Monocytes % (auto) 9.5 % (0.0-12.0); Neutrophils # (auto) 3.3 10 ^3/uL (1.6-8.6); Neutrophils % (auto) 69.8 % (37.0-80.0); Nucleated Red Blood Cells % 0.1 %; Platelet Count (auto) 360 10^3/uL (140-450); Red Blood Cells 4.21 10^6/uL (4.0-5.20); Red Cell Distribution Width 13.7 % (11.8-14.3); White Blood Cell 4.8 10^3/uL (4.4-10.8)
[2024-07-01 11:36] LABS: Alanine Aminotransferase 26 U/L (7-40); Albumin 3.8 g/dL (3.2-4.8); Alkaline Phosphatase 81 U/L (46-116); Anion Gap 6 (5-15); Aspartate Aminotransferase 28 U/L (13-40); BUN/Creatinine Ratio 17.1 (10.0-20.0); Blood Urea Nitrogen 14 mg/dL (9-23); CRP High Sensitivity 0.32 mg/dL (<1.0); Calcium 9.7 mg/dL (8.7-10.4); Chloride 102 mmol/L (98-107); Erythrocyte Sedimentation Rate 53 mm/hr (0-20); Glucose 88 mg/dL (74-106); Sodium 141 mmol/L (136-145); Total Protein 6.8 g/dL (5.7-8.2); Triglycerides 144 mg/dL (< 150)
[2024-07-01 11:37] LABS: Bilirubin, Total 0.4 mg/dL (0.2-1.0); Carbon Dioxide 33 mmol/L (20-31); Cholesterol 221 mg/dL (< 200); HDL Cholesterol 43 mg/dL (40-59); LDL Cholesterol 164 mg/dL (< 100); Potassium 3.4 mmol/L (3.5-5.1)
[2024-07-02 08:06] LABS: Complement C3 119 mg/dL (82-167); Rheumatoid Arthritis Factor <10.0 IU/mL (<14.0); Thyroid Peroxidase (TPO) Ab 17 IU/mL (0-34)
[2024-07-02 11:07] LABS: Anti-Nuclear Antibody Direct Negative (Negative); Anti-dsDNA Antibody 4 IU/mL (0-9); Antiscleroderma-70 Antibody <0.2 AI (0.0-0.9); RNP Antibody 0.2 AI (0.0-0.9); Sjogren's Anti-SS-A Antibody <0.2 AI (0.0-0.9); Sjogren's Anti-SS-B Antibody <0.2 AI (0.0-0.9); Smith Antibody <0.2 AI (0.0-0.9)
== END | disposition home or self-care (01) ==
LOC: LAB 10:12
PROVIDERS: ATTEND Internal Medicine
DX: E03.9 Hypothyroidism, unspecified (principal); M85.80 Other specified disorders of bone density and structure, unspecified site; R79.89 Other specified abnormal findings of blood chemistry
CPT/HCPCS: 36415; 80053; 80061; 82306; 85025; 85652; 86141; 86160; 86225; 86235; 86376; 86431

== ENCOUNTER → 2024-10-19 | Outpatient (CLI) | payer OTHER | END | disposition home or self-care (01) | LOC: LAB 12:25 | PROVIDERS: ATTEND Internal Medicine | DX: Z01.812 Encounter for preprocedural laboratory examination (principal) ==

== ENCOUNTER 2024-12-01 08:47 | Outpatient (CLI) | payer OTHER ==
[2024-12-01 09:09] LABS: Hematocrit 43.8 % (36.0-46.0); Hemoglobin 14.5 g/dL (12.2-16.2); Mean Corpuscular Hemoglobin 31.9 pg (28.0-32.0); Mean Corpuscular Volume 96.3 fL (80.0-100.0); Nucleated Red Blood Cells % 0.1 %; Urine Protein, UAD TRACE (Negative)
[2024-12-01 09:40] LABS: Alanine Aminotransferase 16 U/L (7-40); Alkaline Phosphatase 72 U/L (46-116); Anion Gap 6 (5-15); BUN/Creatinine Ratio 19.3 (10.0-20.0); Blood Urea Nitrogen 16 mg/dL (9-23); Calcium 9.4 mg/dL (8.7-10.4); Carbon Dioxide 30 mmol/L (20-31); Glucose 84 mg/dL (74-106); Total Protein 7.2 g/dL (5.7-8.2); Triglycerides 85 mg/dL (< 150)
[2024-12-01 09:41] LABS: Albumin 4.1 g/dL (3.2-4.8); Bilirubin, Total 0.7 mg/dL (0.2-1.0)
[2024-12-01 09:58] LABS: Chloride 104 mmol/L (98-107); Cholesterol 228 mg/dL (< 200); HDL Cholesterol 75 mg/dL (40-59); Potassium 4.4 mmol/L (3.5-5.1); Sodium 140 mmol/L (136-145)
== END 2024-12-01 17:00 | disposition home or self-care (01) ==
LOC: LAB 08:47
PROVIDERS: ATTEND Internal Medicine
DX: E03.9 Hypothyroidism, unspecified (principal); F33.41 Major depressive disorder, recurrent, in partial remission
CPT/HCPCS: 36415; 80053; 80061; 81001; 84439; 84443; 85025; 85652